=== PATIENT | female | born 1940 | race Caucasian/White ===

== ENCOUNTER 2017-10-23 13:14 | Emergency (ER) | payer MEDICARE, BC ==
[2017-10-23 13:29] VITALS: RESP 18; TEMP 97.5
--- NOTE | 2017-10-23 14:08 | ED ---
General Adult HPI - General Chief complaint: Extremity Problem,Nontraumatic Stated complaint: R Leg Pain Time Seen by Provider: 10/23/17 14:07 Source: patient Mode of arrival: wheelchair Limitations: no limitations - History of Present Illness Initial comments: Presents with right lower pain just proximal to her medial malleolus, states area feels hot, mild aching pain, since she woke up this morning. Patient denies any trauma or strenuous activity. Denies any increased walking or other abnormal activities. Patient states she was recently treated for a skin rash on that leg, which has since resolved. Patient states she's had surgery on her knee, and then a surgery to remove all the nerve sensation to her lower leg after she was having chronic pain. Patient denies history of blood clots. Denies numbness, weakness in the leg. Patient states the leg feels "hard" to her. - Related Data Home Medications Medication Instructions Recorded Confirmed Albuterol Sulfate [Proventil Hfa] 2 puff INHALATION Q6HR PRN 04/17/16 10/23/17 Ascorbic Acid [Vitamin C] 1,000 mg PO DAILY 04/17/16 10/23/17 Cholecalciferol [Vitamin D3] 2,000 unit PO DAILY 04/17/16 10/23/17 Garlic 1 tab PO DAILY 04/17/16 10/23/17 Lysine 1,000 mg PO DAILY 04/17/16 10/23/17 Ubidecarenone [Co Q-10] 200 mg PO DAILY 04/17/16 10/23/17 Boswellia 1 tab PO DAILY 10/23/17 10/23/17 Clopidogrel Bisulfate [Plavix] 75 mg PO DAILY 10/23/17 10/23/17 Ginkgo Biloba 500 mg PO DAILY 10/23/17 10/23/17 Hyaluronic Acid 1 tab PO DAILY 10/23/17 10/23/17 Polycernol 1 tab PO DAILY 10/23/17 10/23/17 Thyroid Support 1 tab PO DAILY 10/23/17 10/23/17 acetaZOLAMIDE [Diamox] 250 mg PO BID 10/23/17 10/23/17 Previous Rx's Medication Instructions Recorded Nitroglycerin Sl Tabs [Nitrostat] 0.4 mg SUBLINGUAL Q5M PRN #25 tab 04/22/16 Allergies Allergy/AdvReac Type Severity Reaction Status Date / Time acetaminophen [From Lortab] Allergy Unknown Verified 10/23/17 14:34 atorvastatin [From Lipitor] Allergy Unknown Verified 10/23/17 14:34 bee venom protein (honey bee) Allergy Anaphylaxis Verified 10/23/17 14:34 budesonide [From Symbicort] Allergy Unknown Verified 10/23/17 14:34 cefadroxil [From Duricef] Allergy Unknown Verified 10/23/17 14:34 codeine Allergy Unknown Verified 10/23/17 14:34 cortisone Allergy Unknown Verified 10/23/17 14:34 diphenhydramine Allergy Unknown Verified 10/23/17 14:34 [From Benadryl] erythromycin base Allergy Unknown Verified 10/23/17 14:34 formoterol [From Symbicort] Allergy Unknown Verified 10/23/17 14:34 hydrocodone [From Lortab] Allergy Unknown Verified 10/23/17 14:34 meperidine [From Demerol] Allergy Unknown Verified 10/23/17 14:34 nalbuphine [From Nubain] Allergy Unknown Verified 10/23/17 14:34 naproxen [From Naprosyn] Allergy Unknown Verified 10/23/17 14:34 Penicillins Allergy Unknown Verified 10/23/17 14:34 prednisone Allergy Unknown Verified 10/23/17 14:34 Sulfa (Sulfonamide Allergy Unknown Verified 10/23/17 14:34 Antibiotics) sulfamethoxazole Allergy Unknown Verified 10/23/17 14:34 [From Bactrim] Tetracyclines Allergy Unknown Verified 10/23/17 14:34 tiotropium Allergy Unknown Verified 10/23/17 14:34 [From Spiriva with HandiHaler] trimethoprim [From Bactrim] Allergy Unknown Verified 10/23/17 14:34 MUSCLE RELAXERS Allergy Unknown Uncoded 10/23/17 14:34 prolensa eye drop Allergy Unknown Uncoded 10/23/17 13:29 steroids Allergy Unknown Uncoded 10/23/17 13:29 Review of Systems ROS Statement: Those systems with pertinent positive or pertinent negative responses have been documented in the HPI. ROS Other: All systems not noted in ROS Statement are negative. Constitutional: Denies: fever, chills, weakness Eyes: Denies: vision change ENT: Denies: congestion Respiratory: Denies: dyspnea, hemoptysis Cardiovascular: Denies: chest pain, palpitations, dyspnea on exertion, orthopnea , edema, syncope Endocrine: Denies: fatigue Gastrointestinal: Denies: abdominal pain Musculoskeletal: Reports: myalgia (Right lower leg). Denies: back pain, joint swelling, arthralgia Skin: Denies: rash Neurological: Denies: headache, weakness, numbness, paresthesias, confusion, abnormal gait Past Medical History Past Medical History: Asthma, Cancer, Chest Pain / Angina, COPD, Pneumonia, Thyroid Disorder Additional Past Medical History / Comment(s): uterine cancer 1974, rt eye glaucoma, poor circulation,uti, arthritis-herniated discs, 04-17-16- nstemi. History of Any Multi-Drug Resistant Organisms: None Reported Past Surgical History: Heart Catheterization, Joint Replacement, Tonsillectomy Additional Past Surgical History / Comment(s): 04-17-16 heart cath with stent to lad,rt knee replacement, alexys cataracts,sking tags removed, colonoscopy/egd, partial hysterectomy, rt foot sx, lt knee arthroscopy. Additional Past Anesthesia/Blood Transfusion Reaction / Comment(s): multiple med allergies-see list Past Psychological History: No Psychological Hx Reported Smoking Status: Never smoker Past Alcohol Use History: None Reported Past Drug Use History: None Reported - Past Family History Father Family Medical History: Congestive Heart Failure (CHF) Mother Family Medical History: Myocardial Infarction ([place]) Additional Family Medical History / Comment(s): cabg General Exam - General Exam Comments Initial Comments: Sitting up in wheelchair. No acute distress. Conversing normally. Calm, pleasant. Well appearing. Limitations: no limitations General appearance: alert, in no apparent distress Head exam: Present: atraumatic, normocephalic Eye exam: Present: normal appearance ENT exam: Present: normal external ear exam Neck exam: Present: normal inspection Respiratory exam: Present: normal lung sounds bilaterally. Absent: respiratory distress, wheezes, rales Cardiovascular Exam: Present: regular rate, normal rhythm GI/Abdominal exam: Present: soft. Absent: distended, tenderness Extremities exam: Present: full ROM, tenderness, normal capillary refill, calf tenderness, other (Mild right calf tenderness. No edema appreciated. No overlying skin changes appreciated. Dopplerable biphasic strong DP pulses in R leg. Equal leg temperatures bilaterally, no cyanosis, legs feel warm but not hot. Sensation & muscle strength intact in right lower extremity.). Absent: pedal edema, joint swelling Neurological exam: Present: alert, oriented X3, normal gait. Absent: motor sensory deficit Psychiatric exam: Present: normal affect, normal mood Skin exam: Present: warm, dry, intact, normal color. Absent: rash, cyanosis, erythema, vesicles, petechiae, pallor Course Vital Signs 10/23/17 13:26 Temperature 97.5 F L Pulse Rate 70 Respiratory 18 Rate Blood Pressure 199/91 O2 Sat by Pulse 99 Oximetry Medical Decision Making - Medical Decision Making Patient with dopplerable pulses. Do not feel patient has arterial occlusion. Patient denies any trauma, however she states that she feels like her trimble bone is hurting her, patient agrees to x-ray of tib-fib. We will obtain Doppler ultrasound to rule out DVT of right lower leg. X-ray of the leg shows no acute fracture or other abnormalities. Doppler negative for DVT of the leg. Patient reevaluated, updated with all results. Patient states she feels that the burning and what she thought was redness has resolved spontaneously. At this time patient does not have signs of compartment syndrome, infection, bony abnormalities, blood clots. Patient agrees to follow up with her primary care physician. Return to ER for new or worsening symptoms. Patient informed that no specific diagnosis no at this time, could be peripheral nerve pain, however patient is to monitor for symptoms closely, could be early in a progressive disease process that may worsen and require further treatment in the future. She agrees to follow-up with her primary care physician or emergency room if such new symptoms occur. Disposition Clinical Impression: Right leg pain Disposition: HOME SELF-CARE Condition: Good Instructions: Leg Pain (ED) Additional Instructions: Follow-up with your primary care physician in one to 2 days. Is patient prescribed a controlled substance at d/c from ED?: No Referrals: Julien Redmond MD [Primary Care Provider] - 1-2 days
--- NOTE | 2017-10-23 15:01 | XR ---
EXAMINATION TYPE: XR tibia fibula RT DATE OF EXAM: 10/23/2017 CLINICAL HISTORY: Stabbing pain in the right leg today. TECHNIQUE: Two views of the right leg are obtained. COMPARISON: Right knee x-ray September 20, 2012.. FINDINGS: [place] osseous structures are demineralized. There is no acute fracture or dislocation see n in the right tibia or fibula. Metallic hardware from interval right knee arthroplasty is present. R ight ankle joint appears within normal limits. The overlying soft tissue appears unremarkable . IMPRESSION: There is no acute fracture or dislocation seen in the right tibia or fibula.
--- NOTE | 2017-10-23 15:40 | US ---
EXAMINATION TYPE: US venous doppler duplex LE RT DATE OF EXAM: 10/23/2017 3:28 PM COMPARISON: NONE CLINICAL HISTORY: Pain. Rt lower leg pain with skin redness and heat x 1 day SIDE PERFORMED: Right TECHNIQUE: The lower extremity deep venous system is examined utilizing real time linear array sonog [place] with graded compression, doppler sonography and color-flow sonography. VESSELS IMAGED: Common Femoral Vein Deep Femoral Vein Greater Saphenous Vein * Femoral Vein Popliteal Vein Small Saphenous Vein * Proximal Calf Veins (* superficial vessels) Right Leg: Negative for DVT IMPRESSION: 1. No diagnostic evidence of DVT as visualized.
[2017-10-23 16:15] VITALS: BP 175/87; PULSE 90
== END 2017-10-23 16:15 | disposition home or self-care (01) ==
LOC: EC 13:14
DX: M79.604 Pain in right leg (principal); M79.661 Pain in right lower leg; J44.9 Chronic obstructive pulmonary disease, unspecified; H40.9 Unspecified glaucoma; E07.9 Disorder of thyroid, unspecified; I25.2 Old myocardial infarction; Z79.02 Long term (current) use of antithrombotics/antiplatelets; Z79.899 Other long term (current) drug therapy; Z88.0 Allergy status to penicillin; Z88.1 Allergy status to other antibiotic agents; Z88.2 Allergy status to sulfonamides; Z88.6 Allergy status to analgesic agent; Z88.5 Allergy status to narcotic agent; Z88.8 Allergy status to other drugs, medicaments and biological substances; Z91.030 Bee allergy status; Z85.42 Personal history of malignant neoplasm of other parts of uterus; Z96.651 Presence of right artificial knee joint; Z90.710 Acquired absence of both cervix and uterus
CPT/HCPCS: 99284

== ENCOUNTER 2017-11-25 03:16 | Emergency (ER) | payer MEDICARE, BC ==
[2017-11-25 03:23] VITALS: RESP 18
[2017-11-25] MEDS ORDERED: CLINDAMYCIN 150 MG CAP PO STA (04:22)
--- NOTE | 2017-11-25 04:23 | ED ---
ENT HPI - General Chief complaint: Allergic Reaction Stated complaint: allergic rxn Time Seen by Provider: 11/25/17 03:56 Source: patient Mode of arrival: ambulatory Limitations: no limitations - History of Present Illness MD complaint: tooth pain Onset/Timin -: days(s) Location: tooth # (7) Severity: moderate Quality: aching Consistency: constant Improves with: none Worsens with: none Context- Dental: history of dental caries Associated Symptoms: gum swelling, toothache - Related Data Home Medications Medication Instructions Recorded Confirmed Albuterol Sulfate [Proventil Hfa] 2 puff INHALATION Q6HR PRN 04/17/16 11/25/17 Ascorbic Acid [Vitamin C] 1,000 mg PO DAILY 04/17/16 11/25/17 Cholecalciferol [Vitamin D3] 2,000 unit PO DAILY 04/17/16 11/25/17 Garlic 1 tab PO DAILY 04/17/16 11/25/17 Lysine 1,000 mg PO DAILY 04/17/16 11/25/17 Ubidecarenone [Co Q-10] 200 mg PO DAILY 04/17/16 11/25/17 Boswellia 1 tab PO DAILY 10/23/17 11/25/17 Clopidogrel Bisulfate [Plavix] 75 mg PO DAILY 10/23/17 11/25/17 Ginkgo Biloba 500 mg PO DAILY 10/23/17 11/25/17 Hyaluronic Acid 1 tab PO DAILY 10/23/17 11/25/17 Polycernol 1 tab PO DAILY 10/23/17 11/25/17 Thyroid Support 1 tab PO DAILY 10/23/17 11/25/17 acetaZOLAMIDE [Diamox] 250 mg PO BID 10/23/17 11/25/17 Previous Rx's Medication Instructions Recorded Nitroglycerin Sl Tabs [Nitrostat] 0.4 mg SUBLINGUAL Q5M PRN #25 tab 04/22/16 Clindamycin [Cleocin] 150 mg PO Q6H #28 capsule 11/25/17 Allergies Allergy/AdvReac Type Severity Reaction Status Date / Time acetaminophen [From Lortab] Allergy Unknown Verified 11/25/17 03:23 atorvastatin [From Lipitor] Allergy Unknown Verified 11/25/17 03:23 bee venom protein (honey bee) Allergy Anaphylaxis Verified 11/25/17 03:23 budesonide [From Symbicort] Allergy Unknown Verified 11/25/17 03:23 cefadroxil [From Duricef] Allergy Unknown Verified 11/25/17 03:23 codeine Allergy Unknown Verified 11/25/17 03:23 cortisone Allergy Unknown Verified 11/25/17 03:23 diphenhydramine Allergy Unknown Verified 11/25/17 03:23 [From Benadryl] erythromycin base Allergy Unknown Verified 11/25/17 03:23 formoterol [From Symbicort] Allergy Unknown Verified 11/25/17 03:23 hydrocodone [From Lortab] Allergy Unknown Verified 11/25/17 03:23 meperidine [From Demerol] Allergy Unknown Verified 11/25/17 03:23 nalbuphine [From Nubain] Allergy Unknown Verified 11/25/17 03:23 naproxen [From Naprosyn] Allergy Unknown Verified 11/25/17 03:23 Penicillins Allergy Unknown Verified 11/25/17 03:23 prednisone Allergy Unknown Verified 11/25/17 03:23 Sulfa (Sulfonamide Allergy Unknown Verified 11/25/17 03:23 Antibiotics) sulfamethoxazole Allergy Unknown Verified 11/25/17 03:23 [From Bactrim] Tetracyclines Allergy Unknown Verified 11/25/17 03:23 tiotropium Allergy Unknown Verified 11/25/17 03:23 [From Spiriva with HandiHaler] trimethoprim [From Bactrim] Allergy Unknown Verified 11/25/17 03:23 MUSCLE RELAXERS Allergy Unknown Uncoded 11/25/17 03:23 prolensa eye drop Allergy Unknown Uncoded 11/25/17 03:23 steroids Allergy Unknown Uncoded 11/25/17 03:23 Review of Systems ROS Statement: Those systems with pertinent positive or pertinent negative responses have been documented in the HPI. ROS Other: All systems not noted in ROS Statement are negative. Constitutional: Denies: fever, chills, weakness ENT: Reports: dental pain. Denies: ear pain, throat pain Respiratory: Denies: cough, dyspnea Cardiovascular: Denies: chest pain Gastrointestinal: Denies: abdominal pain Musculoskeletal: Denies: back pain Neurological: Denies: headache, weakness, numbness Past Medical History Past Medical History: Asthma, Cancer, Chest Pain / Angina, COPD, Pneumonia, Thyroid Disorder Additional Past Medical History / Comment(s): uterine cancer 1973, rt eye glaucoma, poor circulation,uti, arthritis-herniated discs, 04-17-16- nstemi. History of Any Multi-Drug Resistant Organisms: None Reported Past Surgical History: Heart Catheterization, Joint Replacement, Tonsillectomy Additional Past Surgical History / Comment(s): 04-17-16 heart cath with stent to lad,rt knee replacement, alexys cataracts,sking tags removed, colonoscopy/egd, partial hysterectomy, rt foot sx, lt knee arthroscopy. Additional Past Anesthesia/Blood Transfusion Reaction / Comment(s): multiple med allergies-see list Past Psychological History: No Psychological Hx Reported Smoking Status: Never smoker Past Alcohol Use History: None Reported Past Drug Use History: None Reported - Past Family History Father Family Medical History: Congestive Heart Failure (CHF) Mother Family Medical History: Myocardial Infarction ([place]) Additional Family Medical History / Comment(s): cabg General Exam Limitations: no limitations General appearance: alert, in no apparent distress Head exam: Present: atraumatic, normocephalic Eye exam: Present: normal appearance. Absent: scleral icterus, conjunctival injection ENT exam: Present: other (There does appear to be some mild erythema and swelling of the gingiva. No palpable abscess or ulceration.) Neck exam: Present: normal inspection, full ROM, other (No sublingual or neck fullness or tenderness). Absent: tenderness, meningismus, lymphadenopathy Respiratory exam: Present: normal lung sounds bilaterally. Absent: respiratory distress, wheezes, rales, rhonchi, stridor Cardiovascular Exam: Present: regular rate, normal rhythm, normal heart sounds. Absent: systolic murmur, diastolic murmur, rubs, gallop Neurological exam: Present: alert Skin exam: Present: warm, dry, intact, normal color. Absent: rash Course Vital Signs 11/25/17 11/25/17 03:19 04:44 Temperature 98.5 F 98 F Pulse Rate 75 78 Respiratory 18 18 Rate Blood Pressure 182/110 174/90 O2 Sat by Pulse 99 99 Oximetry Disposition Clinical Impression: Dental infection Disposition: HOME SELF-CARE Condition: Fair Instructions: Toothache (ED) Prescriptions: Clindamycin [Cleocin] 150 mg PO Q6H #28 capsule Is patient prescribed a controlled substance at d/c from ED?: No Referrals: Julien Redmond MD [Primary Care Provider] - 1-2 days
[2017-11-25 04:46] VITALS: BP 174/90; PULSE 78; TEMP 98
== END 2017-11-25 04:45 | disposition home or self-care (01) ==
LOC: EC 03:16
DX: K04.7 Periapical abscess without sinus (principal); J44.9 Chronic obstructive pulmonary disease, unspecified; E07.9 Disorder of thyroid, unspecified; Z85.42 Personal history of malignant neoplasm of other parts of uterus; Z79.01 Long term (current) use of anticoagulants; Z79.899 Other long term (current) drug therapy; Z91.030 Bee allergy status; Z88.0 Allergy status to penicillin; Z88.2 Allergy status to sulfonamides; Z88.8 Allergy status to other drugs, medicaments and biological substances; Z88.5 Allergy status to narcotic agent; Z88.1 Allergy status to other antibiotic agents; Z88.6 Allergy status to analgesic agent; Z96.651 Presence of right artificial knee joint; Z95.818 Presence of other cardiac implants and grafts
CPT/HCPCS: 99283

== ENCOUNTER → 2017-12-18 | Outpatient (CLI) | payer MEDICARE, BC ==
[2017-12-18 14:26] VITALS: BMI 32.4
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
== END ==
LOC: WWCWWP 14:11
PROVIDERS: ATTEND Surgery
DX: N60.19 Diffuse cystic mastopathy of unspecified breast (principal); J44.9 Chronic obstructive pulmonary disease, unspecified; Z53.9 Procedure and treatment not carried out, unspecified reason; I25.2 Old myocardial infarction; Z88.0 Allergy status to penicillin; Z85.42 Personal history of malignant neoplasm of other parts of uterus; Z88.1 Allergy status to other antibiotic agents

== ENCOUNTER → 2018-01-27 | Outpatient (CLI) | payer MEDICARE, BC ==
--- NOTE | 2018-01-27 12:46 | XR ---
EXAMINATION TYPE: XR chest 2V DATE OF EXAM: 01/27/2018 COMPARISON: 04/17/2016 TECHNIQUE: PA and lateral views submitted. HISTORY: Cough FINDINGS: The lungs are clear and there is no pneumothorax, pleural effusion, or focal pneumonia. Hypertrophi c and degenerative change of the spine. Curvature of the spine. Atherosclerotic change aorta. Biapica l pleural thickening. Arthropathy of the shoulders. No overt failure. IMPRESSION: 1. No acute process.
== END | disposition home or self-care (01) ==
LOC: RADXRMAIN 12:02
PROVIDERS: ATTEND Nurse Practitioner Adult Health
DX: R09.89 Other specified symptoms and signs involving the circulatory and respiratory systems (principal)
CPT/HCPCS: 71046

== ENCOUNTER → 2018-11-26 | Outpatient (CLI) | payer MEDICARE, BC ==
--- NOTE | 2018-11-30 09:27 | MM ---
Reason for exam: screening (asymptomatic). Last mammogram was performed 1 year and 6 months ago. History: Patient is postmenopausal and has history of other cancer at age 33. Physical Findings: A clinical breast exam by your physician is recommended on an annual basis and results should be correlated with mammographic findings. MG 3D Screening Mammo W/Cad Bilateral CC and MLO view(s) were taken. Prior study comparison: June 06, 2017, bilateral MG 3d screening mammo w/cad. November 09, 2015, bilateral MG 3d screening mammo w/cad. There are scattered fibroglandular densities. No significant changes when compared with prior studies. ASSESSMENT: Negative, BI-RAD 1 RECOMMENDATION: Routine screening mammogram of both breasts in 1 year.
== END | disposition home or self-care (01) ==
LOC: RADMAMWWP 12:21
PROVIDERS: ATTEND Family Medicine
DX: Z12.31 Encounter for screening mammogram for malignant neoplasm of breast (principal)
CPT/HCPCS: 77063; 77067

== ENCOUNTER 2019-11-09 15:09 | Inpatient (IN) | payer MEDICARE, BC ==
[2019-11-09] MEDS ORDERED: SODIUM CHLORIDE 0.9% 500 ML 500 ML IV STA (16:11)
--- NOTE | 2019-11-09 16:22 | ED ---
General Adult HPI - General Chief complaint: Urogenital Stated complaint: uti/sent pcp Time Seen by Provider: 11/09/19 15:45 Source: patient, RN notes reviewed, old records reviewed Mode of arrival: ambulatory Limitations: no limitations - History of Present Illness Initial comments: 78-year-old female patient presents to ED for chief complaint of 2 days of dysuria, burning with urination. Patient reports that she went to her primary care provider's office and give a urine sample and she stated that she had a urinary tract infection. Patient reports that she has an extensive list of ALLERGIES and she was told by her physician Dr. Redmond that because of that she needed to be admitted for IV antibiotics. Denies any abdominal pain. Denies any other complaints at this time. Systemic: Pt denies fatigue, fever/chills, rash. Pt denies weakness, night sweats, weight loss. Neuro: Pt denies headache, visual disturbances, syncope or pre-syncope. HEENT: Pt denies ocular discharge or irritation, otalgia, rhinorrhea, pharyngitis or notable lymphadenopathy. Cardiopulmonary: Pt denies chest pain, SOB, heart palpitations, dyspnea on exertion. Abdominal/GI: Pt denies abdominal pain, n/v/d. : Denies new onset urinary or bowel incontinence. MSK: Pt denies myalgia, loss of strength or function in extremities. Neuro: Pt denies new onset weakness, paresthesias. - Related Data Home Medications Medication Instructions Recorded Confirmed Albuterol Sulfate [Proventil Hfa] 2 puff INHALATION Q6HR PRN 04/17/16 11/25/17 Ascorbic Acid [Vitamin C] 1,000 mg PO DAILY 04/17/16 11/25/17 Cholecalciferol [Vitamin D3] 2,000 unit PO DAILY 04/17/16 11/25/17 Garlic 1 tab PO DAILY 04/17/16 11/25/17 Lysine 1,000 mg PO DAILY 04/17/16 11/25/17 Ubidecarenone [Co Q-10] 200 mg PO DAILY 04/17/16 11/25/17 Boswellia 1 tab PO DAILY 10/23/17 11/25/17 Clopidogrel Bisulfate [Plavix] 75 mg PO DAILY 10/23/17 11/25/17 Ginkgo Biloba 500 mg PO DAILY 10/23/17 11/25/17 Hyaluronic Acid 1 tab PO DAILY 10/23/17 11/25/17 Polycernol 1 tab PO DAILY 10/23/17 11/25/17 Thyroid Support 1 tab PO DAILY 10/23/17 11/25/17 acetaZOLAMIDE [Diamox] 250 mg PO BID 10/23/17 11/25/17 Previous Rx's Medication Instructions Recorded Nitroglycerin Sl Tabs [Nitrostat] 0.4 mg SUBLINGUAL Q5M PRN #25 tab 04/22/16 Clindamycin [Cleocin] 150 mg PO Q6H #28 capsule 11/25/17 Allergies Allergy/AdvReac Type Severity Reaction Status Date / Time acetaminophen [From Lortab] Allergy Unknown Verified 11/09/19 15:44 atorvastatin [From Lipitor] Allergy Unknown Verified 11/09/19 15:44 bee venom protein (honey bee) Allergy Anaphylaxis Verified 11/09/19 15:44 budesonide [From Symbicort] Allergy Unknown Verified 11/09/19 15:44 cefadroxil [From Duricef] Allergy Unknown Verified 11/09/19 15:44 codeine Allergy Unknown Verified 11/09/19 15:44 cortisone Allergy Unknown Verified 11/09/19 15:44 diphenhydramine Allergy Unknown Verified 11/09/19 15:44 [From Benadryl] erythromycin base Allergy Unknown Verified 11/09/19 15:44 formoterol [From Symbicort] Allergy Unknown Verified 11/09/19 15:44 hydrocodone [From Lortab] Allergy Unknown Verified 11/09/19 15:44 meperidine [From Demerol] Allergy Unknown Verified 11/09/19 15:44 nalbuphine [From Nubain] Allergy Unknown Verified 11/09/19 15:44 naproxen [From Naprosyn] Allergy Unknown Verified 11/09/19 15:44 Penicillins Allergy Unknown Verified 11/09/19 15:44 prednisone Allergy Unknown Verified 11/09/19 15:44 Sulfa (Sulfonamide Allergy Unknown Verified 11/09/19 15:44 Antibiotics) sulfamethoxazole Allergy Unknown Verified 11/09/19 15:44 [From Bactrim] Tetracyclines Allergy Unknown Verified 11/09/19 15:44 tiotropium Allergy Unknown Verified 11/09/19 15:44 [From Spiriva with HandiHaler] trimethoprim [From Bactrim] Allergy Unknown Verified 11/09/19 15:44 MUSCLE RELAXERS Allergy Unknown Uncoded 11/09/19 15:44 prolensa eye drop Allergy Unknown Uncoded 11/09/19 15:44 steroids Allergy Unknown Uncoded 11/09/19 15:44 Review of Systems ROS Statement: Those systems with pertinent positive or pertinent negative responses have been documented in the HPI. ROS Other: All systems not noted in ROS Statement are negative. Past Medical History Past Medical History: Asthma, Cancer, Chest Pain / Angina, COPD, Pneumonia, Thyroid Disorder Additional Past Medical History / Comment(s): uterine cancer 1973, rt eye glaucoma, poor circulation,uti, arthritis-herniated discs, 04-17-16- nstemi. History of Any Multi-Drug Resistant Organisms: None Reported Past Surgical History: Heart Catheterization, Joint Replacement, Orthopedic Surgery, Tonsillectomy Additional Past Surgical History / Comment(s): 04-17-16 heart cath with stent to lad,rt knee replacement, alexys cataracts,sking tags removed, colonoscopy/egd, partial hysterectomy, rt foot sx, lt knee arthroscopy. Additional Past Anesthesia/Blood Transfusion Reaction / Comment(s): multiple med allergies-see list Past Psychological History: No Psychological Hx Reported Smoking Status: Never smoker Past Alcohol Use History: None Reported Past Drug Use History: None Reported - Past Family History Father Family Medical History: Congestive Heart Failure (CHF) Mother Family Medical History: Myocardial Infarction ([place]) Additional Family Medical History / Comment(s): cabg General Exam - General Exam Comments Initial Comments: Constitutional: NAD, AOX3, Pt has pleasant affect. HEENT: NC/AT, trachea midline, neck supple, no lymphadenopathy. Posterior pharynx non erythematous, without exudates. External ears appear normal, without discharge. Mucous membranes moist. Eyes PERRLA, EOM intact. There is no scleral icterus. No pallor noted. Cardiopulmonary: RRR, no murmurs, rubs or gallops, no JVD noted. Lungs CTAB in anterior and posterior leung. No peripheral edema. Abdominal exam: Abdomen soft and non-distended. Abdomen non-tender to palpation in all 4 quadrants. Bowel sounds active in LLQ. No hepatosplenomegaly. No ecchymosis Neuro: CN II-XII grossly intact. No nuchal rigidity. No raccon eyes, no andujar sign, no hemotympanum. No cervical spinal tenderness. MSK: No posterior calf tenderness bilaterally, homans sign negative bilaterally. Posterior tibialis and radial pulse +2 bilaterally. Sensation intact in upper and lower extremities. Full active ROM in upper and lower extremities, 5/5 stregnth. Limitations: no limitations Course Vital Signs 11/09/19 15:41 Temperature 97.8 F Pulse Rate 117 H Respiratory 20 Rate Blood Pressure 164/76 O2 Sat by Pulse 97 Oximetry Medical Decision Making - Medical Decision Making 78-year-old female patient proceeded to ED for urinary tract infection. Patient had a urine sample from her primary care provider which was positive for UTI today. Patient extensive medical history patient probably Around wanted patient merited for urinary tract infection. Patient admitted to hospital started on Invanz. PCP Dr. Redmond. Patient admitted to Dr. Larson with infectious disease consult. Dr. Larson accepts patient. Case discussed with Dr. Lamb. - Lab Data Result diagrams: 11/09/19 16:34 11/09/19 16:34 Lab Results 11/09/19 11/09/19 11/09/19 Range/Units 16:34 16:34 16:34 WBC 8.1 (3.8-10.6) k/uL RBC 4.75 (3.80-5.40) m/uL Hgb 14.0 (11.4-16.0) gm/dL Hct 44.8 (34.0-46.0) % MCV 94.3 (80.0-100.0) fL MCH 29.4 (25.0-35.0) pg MCHC 31.2 (31.0-37.0) g/dL RDW 13.4 (11.5-15.5) % Plt Count 172 (150-450) k/uL Neutrophils % 59 % Lymphocytes % 32 % Monocytes % 7 % Eosinophils % 1 % Basophils % 0 % Neutrophils # 4.8 (1.3-7.7) k/uL Lymphocytes # 2.6 (1.0-4.8) k/uL Monocytes # 0.5 (0-1.0) k/uL Eosinophils # 0.1 (0-0.7) k/uL Basophils # 0.0 (0-0.2) k/uL Hypochromasia Moderate Sodium 137 (137-145) mmol/L Potassium 3.8 (3.5-5.1) mmol/L Chloride 112 H (98-107) mmol/L Carbon Dioxide 16 L (22-30) mmol/L Anion Gap 9 mmol/L BUN 11 (7-17) mg/dL Creatinine 0.77 (0.52-1.04) mg/dL Est GFR (CKD-EPI)AfAm 85 (>60 ml/min/1.73 sqM) Est GFR (CKD-EPI)NonAf 74 (>60 ml/min/1.73 sqM) Glucose 112 H (74-99) mg/dL Plasma Lactic Acid Felipe 1.0 (0.7-2.0) mmol/L Calcium 8.7 (8.4-10.2) mg/dL Total Bilirubin 0.6 (0.2-1.3) mg/dL AST 35 (14-36) U/L ALT 11 (4-34) U/L Alkaline Phosphatase 62 (38-126) U/L Total Protein 7.1 (6.3-8.2) g/dL Albumin 3.6 (3.5-5.0) g/dL Lipase 222 (23-300) U/L Disposition Clinical Impression: UTI (urinary tract infection) Disposition: ADMITTED IP TO THIS HOSP Condition: Fair Is patient prescribed a controlled substance at d/c from ED?: No Referrals: Julien Redmond MD [Primary Care Provider] - 1-2 days
[2019-11-09 16:54] LABS: Basophils % (A) 0 %; Eosinophils # (A) 0.1 k/uL (0-0.7); Eosinophils % (A) 1 %; HCT 44.8 % (34.0-46.0); Hypochromasia Moderate; Lymphocytes # (A) 2.6 k/uL (1.0-4.8); Lymphocytes % (A) 32 %; MCH 29.4 pg (25.0-35.0); MCHC 31.2 g/dL (31.0-37.0); MCV 94.3 fL (80.0-100.0); Mean Platelet Volume 9.4; Monocytes # (A) 0.5 k/uL (0-1.0); Monocytes % (A) 7 %; Neutrophils # (A) 4.8 k/uL (1.3-7.7); Neutrophils % (A) 59 %; Platelet Count 172 k/uL (150-450); RBC 4.75 m/uL (3.80-5.40); RDW 13.4 % (11.5-15.5); WBC 8.1 k/uL (3.8-10.6)
[2019-11-09 17:02] LABS: Albumin 3.6 g/dL (3.5-5.0); Calcium 8.7 mg/dL (8.4-10.2); Potassium 3.8 mmol/L (3.5-5.1); Total Bilirubin 0.6 mg/dL (0.2-1.3); Total Protein 7.1 g/dL (6.3-8.2)
[2019-11-09] MEDS ORDERED: ERTAPENEM 1 GM in SODIUM CHLORIDE 0.9% 50 ML IVPB STA (17:49)
[2019-11-09 18:12] LABS: Appearance,Urine Cloudy (Clear); Bacteria,Urine Occasional /hpf; Bilirubin,Urine Negative (Negative); Blood,Urine Negative (Negative); Budding Yeast,Urine Few /hpf; Color,Urine Light Yellow; Glucose,Urine (UA) Negative (Negative); Hyaline Casts,Urine 1 /lpf (0-2); Ketones,Urine Negative (Negative); Leukocyte Esterase,Urine Large (Negative); Mucus,Urine Rare /hpf; Nitrite,Urine Negative (Negative); Protein,Urine Negative (Negative); RBC,Urine 7 /hpf (0-5); Specific Gravity,Urine 1.004 (1.001-1.035); Squamous Epithelial Cell,Urine 1 /hpf (0-4); Urobilinogen,Urine <2.0 mg/dL (<2.0); WBC,Urine 95 /hpf (0-5)
[2019-11-09] MEDS ORDERED: NALOXONE 0.4 MG/ML 1 ML VIAL IV PRN (18:30)
[2019-11-09] MEDS ORDERED: ALPRAZolam 0.25 MG TAB PO PRN (20:25)
--- NOTE | 2019-11-10 00:34 | HP ---
HISTORY AND PHYSICAL DATE OF SERVICE: 11/09/2019 CHIEF COMPLAINT: Dysuria and UTI. HISTORY OF PRESENT ILLNESS: This 78-year-old woman with a past medical history of multiple medical problems including history of asthma, COPD, history of pneumonia, history of uterine cancer, history of DJD, history of multiple medication allergies, being followed by Dr. Julien Redmond in the outpatient setting complains of dysuria for the last several days. The patient is also complaining of lower abdominal discomfort and the patient went to Dr. Redmond's office and the patient also has some burning sensation even when not passing urine in the urethral area and the patient was taken a urine sample and was noted to have UTI. Patient referred to [facility] for further evaluation and treatment. White count is normal, but CO2 was 16 and UA showed significant abnormalities. The patient admitted for further evaluation and treatment. There is no history of any rigors, but the patient previously had UTI and apparently IV antibiotics given outpatient and seen Dr. Prater also. The patient received Pyridium also previously. PAST MEDICAL HISTORY: History of asthma, history of cancer, COPD, history of pneumonia, history of hypothyroidism, history of uterine cancer. MEDICATIONS: Medications are: 1. Diamox 250 mg p.o. b.i.d. 2. Coenzyme Q10, 100 mg p.o. daily. 3. Thyroid supplements. 5. Nitrostat 0.4 sublingual p.r.n. 6. Lysine 1000 mg p.o. daily. 7. Hyaluronic acid 1 tab p.o. daily. 8. [place] biloba 500 mg p.o. daily. 9. Garlic 1 tablet p.o. daily. 10.Plavix 75 mg p.o. daily. 11.Cleocin 150 mg q.6 p.r.n. 12.Vitamin D3, 2000 daily. 13.Boswellia 1 tablet p.o. daily. 14.Vitamin C 1000 mg p.o. daily. 15.Proventil 2 puffs q.6 p.r.n. ALLERGIES: Multiple allergies including TYLENOL, LIPITOR, HONEY BEE, SYMBICORT, DURICEF, CODEINE, CORTISONE, BENADRYL, SYMBICORT, ERYTHROMYCIN, DEMEROL, NUBAIN, NAPROSYN, PENICILLIN, PREDNISONE, SULFA, TETRACYCLINE, SPIRIVA. PROLENSA EYEDROPS and STEROIDS. FAMILY HISTORY: History of CHF in the family. SOCIAL HISTORY: No history of smoking. No history of alcohol intake. REVIEW OF SYSTEMS: ENT: No diminished hearing or diminished vision. CARDIOVASCULAR SYSTEM: No angina. RESPIRATORY SYSTEM: No cough. GI: As mentioned earlier. : As mentioned earlier. NERVOUS SYSTEM: No numbness or weakness. ALLERGY/IMMUNOLOGY: No history of asthma. MUSCULOSKELETAL: As mentioned earlier. HEMATOLOGY: No history of anemia. ENDOCRINE: No history of diabetes or hypothyroidism. CONSTITUTIONAL: As mentioned earlier. DERMATOLOGY: Negative. RHEUMATOLOGY: Negative. PSYCHIATRY: As mentioned earlier. PHYSICAL EXAMINATION: The patient is alert and oriented x3. Pulse is 117, blood pressure 164/76, respiration 20, temperature 97.8, pulse ox 97% on room air. HEENT: Conjunctivae normal. Oral mucosa moist. NECK: No jugular venous distention or carotid bruit. No lymph node enlargement. CARDIOVASCULAR: S1, S2 muffled. No S3, no S4. RESPIRATORY: Breath sounds diminished at the bases. No rhonchi, no crackles. ABDOMEN: Soft, obese, nontender. No mass palpable. Otherwise mild diffuse tenderness in the lower part of the abdomen present. There is no guarding or rigidity. LEGS: No edema, no swelling. NERVOUS SYSTEM: Higher function as mentioned earlier. Moves all 4 limbs. No focal motor or sensory deficit. LYMPHATICS: No lymphadenopathy of the neck, axillae or groin. SKIN: No ulcer, rash or bleeding. JOINTS: No active deforming arthropathy. LABS: Labs at this time show CBC within normal limits. Sodium 137, potassium 3.8, CO2 16. Glucose is 112. UA noted. ASSESSMENT: 1. Acute urinary tract infection present on admission. 2. History of multiple antibiotic and medication allergies. 3. Decreased CO2. 4. History of asthma and chronic obstructive pulmonary disease. 5. History of chest pain. 6. History of right lung cancer, status post radiation. 7. History of pneumonia. 8. History of hypothyroidism. 9. History of uterine cancer. 10.History of glaucoma. 11.History of cardiac catheterization. 12.History of tonsillectomy. 13.History of LAD stent. 14.FULL CODE. RECOMMENDATIONS AND DISCUSSION: This 78-year-old woman who presented with multiple complex medical issues, we will monitor the patient closely. Continue the current medications, continue symptomatic treatment. I would recommend empiric IV antibiotics and follow the cultures. IV Invanz has been recommended. We will also obtain Dr. Prater consultation and initiate Pyridium. Resume the home medications. DVT prophylaxis. Incentive spirometry and proton pump inhibitors. Overall prognosis guarded because of multiple complex medical issues. Further recommendations to follow. A copy of dictation forwarded to Dr. Julien Redmond who is the primary physician. MMODL / IJN: [id number] / MTDD
[2019-11-10] MEDS: PHENAZOPYRIDINE 200 MG TAB PO SCH ×4 (00:58→21:08)
[2019-11-10] MEDS: HEPARIN SODIUM,PORCINE 5,000 UNIT/ML 1 ML VIAL SQ SCH ×3 (01:03→21:02)
[2019-11-10 08:59] LABS: Basophils % (A) 0 %; Eosinophils # (A) 0.1 k/uL (0-0.7); Eosinophils % (A) 2 %; HCT 41.2 % (34.0-46.0); Hypochromasia Moderate; Lymphocytes # (A) 2.4 k/uL (1.0-4.8); Lymphocytes % (A) 32 %; MCH 29.8 pg (25.0-35.0); MCHC 31.4 g/dL (31.0-37.0); MCV 94.9 fL (80.0-100.0); Mean Platelet Volume 9.2; Monocytes # (A) 0.5 k/uL (0-1.0); Monocytes % (A) 7 %; Neutrophils # (A) 4.3 k/uL (1.3-7.7); Neutrophils % (A) 57 %; Platelet Count 178 k/uL (150-450); RBC 4.34 m/uL (3.80-5.40); RDW 13.2 % (11.5-15.5); WBC 7.5 k/uL (3.8-10.6)
[2019-11-10 09:15] LABS: African American GFR (CKD) >90 (>60 ml/min/1.73 sqM); Anion Gap 9 mmol/L; Blood Urea Nitrogen 11 mg/dL (7-17); Calcium 8.4 mg/dL (8.4-10.2); Carbon Dioxide 18 mmol/L (22-30); Chloride 113 mmol/L (98-107); Glucose 87 mg/dL (74-99); Non-African American GFR(CKD) 84 (>60 ml/min/1.73 sqM); Potassium 3.4 mmol/L (3.5-5.1); Sodium 140 mmol/L (137-145)
[2019-11-10] MEDS: ERTAPENEM 1 GM in SODIUM CHLORIDE 0.9% 50 ML IVPB SCH (09:53)
[2019-11-10] MEDS: PANTOPRAZOLE 40 MG TABLET PO SCH (10:04)
[2019-11-10] MEDS ORDERED: acetaZOLAMIDE 250 MG TAB PO STA (16:09)
[2019-11-10] MEDS ORDERED: POTASSIUM CHLORIDE ER 20 MEQ TAB.ER PO STA (16:57)
[2019-11-10] MEDS: acetaZOLAMIDE 250 MG TAB PO SCH (21:08)
--- NOTE | 2019-11-10 22:19 | PN ---
PROGRESS NOTE DATE OF SERVICE: 11/10/2019 This 78-year-old woman admitted with severe dysuria and UTI is being closely monitored at this time. Cultures are pending at this time. However, the patient was started on Invanz. No chest pain. No palpitations. Infectious disease evaluation by Dr. Prater is being requested. PHYSICAL EXAMINATION: Alert and oriented x3. Pulse 55, blood pressure 142/59, respiration 18, temperature 99 degrees, pulse ox 98% on room air. HEENT: Conjunctivae normal. NECK: No jugular venous distention. CARDIOVASCULAR SYSTEM: S1, S2 muffled. RESPIRATORY SYSTEM: Breath sounds diminished at the bases. No rhonchi. No crackles. ABDOMEN: Soft. Mild diffuse discomfort in the right lower part. Otherwise, no guarding and no rigidity. No mass palpable. LEGS: No edema. No swelling. NERVOUS SYSTEM: No focal deficit. LABS: CBC within normal limits. Potassium 3.4. UA noted. The cultures are pending at this time. ASSESSMENT: 1. Acute urinary tract infection, present on admission. 2. History of multiple antibiotic and medication allergies. 3. Decreased carbon dioxide. 4. History of asthma, chronic obstructive pulmonary disease. 5. History of chest pain. 6. History of right lung cancer, status post radiation. 7. History of pneumonia. 8. History of hypothyroidism. 9. History of uterine cancer. 10.History of glaucoma. 11.History of cardiac catheterization. 12.History of tonsillectomy. 13.History of left anterior descending coronary artery stent. 14.Mild hypokalemia. 15.FULL CODE. RECOMMENDATIONS AND DISCUSSION: In this 78-year-old woman who presented with multiple complex medical issues, we will monitor the patient closely, continue the current medications, continue symptomatic treatment. Continue the Invanz for now. Infectious disease evaluation. The patient is keen on going home. I will supplement some potassium. Continue to monitor. Further recommendations to follow. MMODL / IJN: [id number] /
--- NOTE | 2019-11-11 08:34 | P.CONS ---
History of Present Illness - Reason for Consult Consult date: 11/10/19 UTI Requesting physician: Lyle Larson - Chief Complaint Burning urine x 2 days - History of Present Illness Patient is a 78-year-old female with past medical history significant for recurrent urinary tract infection and multiple antibiotic allergies patient presenting to the ER at [facility] on November 09, 2019 with a 2-day history of dysuria burning with urination some frequency and suprapubic discomfort apparently the patient went to see her primary care physician and the patient did have urine sample she was told she has urine tract infection and because of her multiple antibiotic allergy he has been advised to go to the hospital for antibiotic therapy on presentation to the hospital patient has been afebrile patient did have a normal white count urine was positive with large leukocyte esterase is 94 WBC cultures are currently pending patient has been started on Invanz because of her multiple antibiotic allergies and infectious was consulted for further management of antibiotic therapy. Patient symptoms currently are burning of urine and frequency for 2 days denies having any hematuria mild suprapubic discomfort more with a leaking 2-3 out of 10 and radiation no flank pain some nausea but no vomiting and no diarrhea Review of Systems Positive point has been mentioned in HPI rest of the systems are negative Past Medical History Past Medical History: Asthma, Cancer, Chest Pain / Angina, COPD, Pneumonia, Thyroid Disorder Additional Past Medical History / Comment(s): uterine cancer 1973, rt eye glaucoma, poor circulation,uti, arthritis-herniated discs, 04-17-16- nstemi. History of Any Multi-Drug Resistant Organisms: None Reported Past Surgical History: Heart Catheterization, Joint Replacement, Orthopedic Surgery, Tonsillectomy Additional Past Surgical History / Comment(s): 04-17-16 heart cath with stent to lad,rt knee replacement, alexys cataracts,sking tags removed, colonoscopy/egd, partial hysterectomy, rt foot sx, lt knee arthroscopy. Additional Past Anesthesia/Blood Transfusion Reaction / Comm: multiple med allergies-see list Past Psychological History: No Psychological Hx Reported Smoking Status: Never smoker Past Alcohol Use History: None Reported Past Drug Use History: None Reported - Past Family History Father Family Medical History: Congestive Heart Failure (CHF) Mother Family Medical History: Myocardial Infarction ([place]) Additional Family Medical History / Comment(s): cabg Medications and Allergies Home Medications Medication Instructions Recorded Confirmed Type Albuterol Sulfate [Proventil Hfa] 1 puff INHALATION RT-Q4H PRN 04/17/16 11/10/19 History Ascorbic Acid [Vitamin C] 1,000 mg PO DAILY 04/17/16 11/10/19 History Cholecalciferol [Vitamin D3] 2,000 unit PO DAILY 04/17/16 11/10/19 History Garlic 1 tab PO DAILY 04/17/16 11/10/19 History Lysine 1,000 mg PO DAILY 04/17/16 11/10/19 History Ubidecarenone [Co Q-10] 200 mg PO DAILY 04/17/16 11/10/19 History Nitroglycerin Sl Tabs [Nitrostat] 0.4 mg SUBLINGUAL Q5M PRN #25 tab 04/22/16 11/10/19 Rx Ginkgo Biloba 500 mg PO DAILY 10/23/17 11/10/19 History acetaZOLAMIDE [Diamox] 500 mg PO BID 10/23/17 11/10/19 History Magnesium Oxide [Magox 400] 400 mg PO HS 11/10/19 11/10/19 History [place] 150mcg 150 mcg PO DAILY 11/10/19 11/10/19 History Allergies Allergy/AdvReac Type Severity Reaction Status Date / Time acetaminophen [From Lortab] Allergy Unknown Verified 11/10/19 10:43 atorvastatin [From Lipitor] Allergy Unknown Verified 11/10/19 10:43 bee venom protein (honey bee) Allergy Anaphylaxis Verified 11/10/19 10:43 budesonide [From Symbicort] Allergy Unknown Verified 11/10/19 10:43 cefadroxil [From Duricef] Allergy Unknown Verified 11/10/19 10:43 codeine Allergy Unknown Verified 11/10/19 10:43 cortisone Allergy Unknown Verified 11/10/19 10:43 diphenhydramine Allergy Unknown Verified 11/10/19 10:43 [From Benadryl] erythromycin base Allergy Unknown Verified 11/10/19 10:43 formoterol [From Symbicort] Allergy Unknown Verified 11/10/19 10:43 hydrocodone [From Lortab] Allergy Unknown Verified 11/10/19 10:43 meperidine [From Demerol] Allergy Unknown Verified 11/10/19 10:43 nalbuphine [From Nubain] Allergy Unknown Verified 11/10/19 10:43 naproxen [From Naprosyn] Allergy Unknown Verified 11/10/19 10:43 Penicillins Allergy Unknown Verified 11/10/19 10:43 prednisone Allergy Unknown Verified 11/10/19 10:43 Sulfa (Sulfonamide Allergy Unknown Verified 11/10/19 10:43 Antibiotics) sulfamethoxazole Allergy Unknown Verified 11/10/19 10:43 [From Bactrim] Tetracyclines Allergy Unknown Verified 11/10/19 10:43 tiotropium Allergy Unknown Verified 11/10/19 10:43 [From Spiriva with HandiHaler] trimethoprim [From Bactrim] Allergy Unknown Verified 11/10/19 10:43 MUSCLE RELAXERS AdvReac Unknown Uncoded 11/10/19 10:43 prolensa eye drop AdvReac Unknown Uncoded 11/10/19 10:43 steroids AdvReac Unknown Uncoded 11/10/19 10:43 Physical Exam Vitals: Vital Signs Temp Pulse Pulse Resp BP BP Pulse Ox 11/10/19 14:04 98.0 F 81 19 146/76 93 L 11/10/19 07:00 98.0 F 55 L 18 142/59 98 11/10/19 03:56 98.2 F 58 L 18 126/55 97 11/10/19 00:00 18 11/09/19 23:00 16 11/09/19 20:23 97.8 F 70 16 169/84 99 11/09/19 15:41 97.8 F 117 H 20 164/76 97 Intake and Output 11/10/19 11/10/19 11/10/19 06:59 14:59 22:59 Intake Total 2450 Balance 2450 Intake: IV 50 Ertapenem 1 gm In Sodium 50 Chloride 0.9% 50 ml @ 100 mls/hr IVPB DAILY [facility] Rx #:[id number] Oral 2400 Other: Voiding Method Toilet Toilet # Voids 2 GENERAL DESCRIPTION: Elderly female lying in bed, no distress. No tachypnea or accessory muscle of respiration use. HEENT: Shows Pallor , no scleral icterus. Oral mucous membrane is dry. NECK: Trachea central, no thyromegaly. LUNGS: Unlabored breathing. Clear to auscultation anteriorly. No wheeze or crackle. HEART: S1, S2, regular rate and rhythm. ABDOMEN: Soft, no tenderness , guarding or rigidity EXTREMITIES: No edema of feet. SKIN: No rash, no masses palpable. NEUROLOGICAL: The patient is awake, alert, oriented x3, mood and affect normal. Results CBC & Chem 7: 11/10/19 07:35 11/10/19 07:35 Labs: Abnormal Lab Results - Last 24 Hours (Table) 11/09/19 11/09/19 11/10/19 Range/Units 16:34 16:54 07:35 Potassium 3.4 L (3.5-5.1) mmol/L Chloride 112 H 113 H (98-107) mmol/L Carbon Dioxide 16 L 18 L (22-30) mmol/L Glucose 112 H (74-99) mg/dL Urine Appearance Cloudy H (Clear) Ur Leukocyte Esterase Large H (Negative) Urine RBC 7 H (0-5) /hpf Urine WBC 95 H (0-5) /hpf Urine WBC Clumps Few H (None) /hpf Urine Bacteria Occasional H (None) /hpf Urine Mucus Rare H (None) /hpf Urine Yeast (Budding) Few H (None) /hpf Microbiology - Last 24 Hours (Table) 11/09/19 16:54 Urine Culture - Preliminary Urine,Voided Assessment and Plan Assessment: patient presented to hospital with frequency burning of urine and suprapubic discomfort likely representing cystitis in this patient who did have history of recurrent UTIs and multiple antibiotic allergies with no oral option available clinical suspicion low for deep infection in this patient with no fever elevated white count (1) Allergy to multiple antibiotics Current Visit: Yes Status: Acute Code(s): Z88.1 - ALLERGY STATUS TO OTHER AN TIBIOTIC AGENTS STATUS SNOMED Code(s): 318258409 (2) UTI (urinary tract infection) Current Visit: Yes Status: Acute Code(s): N39.0 - URINARY TRACT INFECTION, SITE NOT SPECIFIED SNOMED Code(s): 31446200 Plan: 1-Invanz 1 g IV bag daily while waiting for the culture to finalize 2-patient has been educated about her condition and how to prevent recurrent UTIs including personal hygiene and may benefit from intravaginal estrogen as the patient is postmenopausal Contributed to her recurrent UTIs We will follow on clinical condition and cultures to further adjust medication if needed Thank you for this consultation we will follow the patient along with you
[2019-11-11] MEDS: CHOLECALCIFEROL 1,000 UNIT TAB PO SCH (09:28)
[2019-11-11] MEDS: ERTAPENEM 1 GM in SODIUM CHLORIDE 0.9% 50 ML IVPB SCH (09:28)
[2019-11-11] MEDS: PHENAZOPYRIDINE 200 MG TAB PO SCH ×3 (09:29→22:08)
[2019-11-11] MEDS: acetaZOLAMIDE 250 MG TAB PO SCH ×2 (09:30→22:09)
[2019-11-11] MEDS: HEPARIN SODIUM,PORCINE 5,000 UNIT/ML 1 ML VIAL SQ SCH ×2 (09:31→22:09)
[2019-11-11] MEDS: PANTOPRAZOLE 40 MG TABLET PO SCH (09:31)
[2019-11-11] MEDS: ASCORBIC ACID 500 MG TAB PO SCH (09:44)
[2019-11-11 10:19] LABS: Basophils % (A) 0 %; Eosinophils # (A) 0.1 k/uL (0-0.7); Eosinophils % (A) 2 %; HGB 12.5 gm/dL (11.4-16.0); Hypochromasia Slight; Lymphocytes # (A) 2.2 k/uL (1.0-4.8); Lymphocytes % (A) 35 %; MCH 28.6 pg (25.0-35.0); MCHC 30.4 g/dL (31.0-37.0); MCV 94.1 fL (80.0-100.0); Mean Platelet Volume 9.3; Monocytes # (A) 0.4 k/uL (0-1.0); Monocytes % (A) 7 %; Neutrophils # (A) 3.5 k/uL (1.3-7.7); Neutrophils % (A) 55 %; Platelet Count 160 k/uL (150-450); RBC 4.36 m/uL (3.80-5.40); RDW 13.3 % (11.5-15.5); WBC 6.3 k/uL (3.8-10.6)
[2019-11-11 10:41] LABS: Potassium 3.7 mmol/L (3.5-5.1)
[2019-11-11 10:42] LABS: African American GFR (CKD) >90 (>60 ml/min/1.73 sqM); Anion Gap 6 mmol/L; Blood Urea Nitrogen 12 mg/dL (7-17); Calcium 8.7 mg/dL (8.4-10.2); Carbon Dioxide 21 mmol/L (22-30); Chloride 112 mmol/L (98-107); Glucose 89 mg/dL (74-99); Non-African American GFR(CKD) 82 (>60 ml/min/1.73 sqM); Sodium 139 mmol/L (137-145)
--- NOTE | 2019-11-11 13:52 | PN ---
PROGRESS NOTE DATE OF SERVICE: 11/11/2019 REASON FOR FOLLOWUP: Urinary tract infection with a history of recurrent UTI and multiple antibiotic allergies. INTERVAL HISTORY: The patient is currently afebrile. The patient is breathing comfortably. Still has some burning of urine. No chest pain. No cough. No nausea, no vomiting. No abdominal pain, no diarrhea. PHYSICAL EXAMINATION: Blood pressure 154/79 with a pulse of 59, temperature 97.5. She is 98% on room air. General description is an elderly female, lying in bed in no distress. RESPIRATORY SYSTEM: Unlabored breathing, clear to auscultation anteriorly. HEART: S1, S2. Regular rate and rhythm. ABDOMEN: Soft, no tenderness. LABS: Hemoglobin is 10.1, white count of 6.3, BUN of 12, creatinine 0.71. Blood culture negative. Urine is so far negative. DIAGNOSTIC IMPRESSION AND PLAN: Patient with symptomatic urinary tract infection in this patient with multiple antibiotic allergies. Currently on Invanz to continue while waiting for the culture to finalize. Continue supportive care. MMODL / IJN: [id number] /
--- NOTE | 2019-11-11 16:07 | PN ---
PROGRESS NOTE DATE OF SERVICE: 11/11/2019 This 78-year-old woman who was admitted with UTI is being closely monitored. The cultures are showing Gram-negative bacilli; final ID is pending at this time. No chest pain. No palpitations. No fever. Dr. Prater is following the patient closely. Patient is on Invanz, since the patient has MULTIPLE ANTIBIOTIC ALLERGIES. PHYSICAL EXAMINATION: Alert and oriented x3. Pulse 61, blood pressure 150/75, respiration 16, temperature 97.8, pulse ox 98% on room air. HEENT: Conjunctivae normal. NECK: No jugular venous distention. CARDIOVASCULAR SYSTEM: S1, S2 muffled. RESPIRATORY SYSTEM: Breath sounds diminished at the bases. No rhonchi. No crackles. ABDOMEN: Soft, non-tender. LEGS: No edema. No swelling. NERVOUS SYSTEM: No focal deficit. LABS: WBC 6.3, hemoglobin 12.5. Sodium 139, potassium 3.7. ASSESSMENT: 1. Acute urinary tract infection, present on admission. 2. History of MULTIPLE ANTIBIOTIC AND MEDICATION ALLERGIES. 3. Decreased carbon dioxide. 4. History of asthma, chronic obstructive pulmonary disease. 5. History of chest pain. 6. History of right lung cancer, status post radiation. 7. History of pneumonia. 8. History of hypothyroidism. 9. History of uterine cancer. 10.History of glaucoma. 11.History of cardiac catheterization. 12.History of tonsillectomy. 13.History of left left anterior descending coronary artery coronary artery disease, stent. 14.Mild hypokalemia. 15.FULL CODE. RECOMMENDATIONS AND DISCUSSION: I recommend to continue current medications, continue with the monitoring, symptomatic treatment. Otherwise at this time I recommend continuing with the antibiotics, Invanz, and await final ID of the organism. Guarded prognosis. Further recommendations to follow. MMODL / IJN: [id number] /
[2019-11-11] MEDS: UBIDECARENONE PO SCH (17:58)
[2019-11-12] MEDS: ASCORBIC ACID 500 MG TAB PO SCH (07:34)
[2019-11-12] MEDS: HEPARIN SODIUM,PORCINE 5,000 UNIT/ML 1 ML VIAL SQ SCH ×3 (07:34→20:41)
[2019-11-12] MEDS: PHENAZOPYRIDINE 200 MG TAB PO SCH ×3 (07:34→20:41)
[2019-11-12] MEDS: ERTAPENEM 1 GM in SODIUM CHLORIDE 0.9% 50 ML IVPB SCH (07:35)
[2019-11-12] MEDS: acetaZOLAMIDE 250 MG TAB PO SCH ×2 (07:35→20:42)
[2019-11-12] MEDS: CHOLECALCIFEROL 1,000 UNIT TAB PO SCH (07:35)
[2019-11-12] MEDS: UBIDECARENONE PO SCH (07:36)
[2019-11-12] MEDS: PANTOPRAZOLE 40 MG TABLET PO SCH ×2 (07:36→07:37)
[2019-11-12 08:25] LABS: Basophils % (A) 0 %; Eosinophils # (A) 0.1 k/uL (0-0.7); Eosinophils % (A) 2 %; HCT 39.9 % (34.0-46.0); HGB 12.9 gm/dL (11.4-16.0); Hypochromasia Slight; Lymphocytes # (A) 2.7 k/uL (1.0-4.8); Lymphocytes % (A) 37 %; MCH 30.1 pg (25.0-35.0); MCHC 32.4 g/dL (31.0-37.0); MCV 93.1 fL (80.0-100.0); Monocytes # (A) 0.5 k/uL (0-1.0); Monocytes % (A) 7 %; Neutrophils # (A) 3.7 k/uL (1.3-7.7); Neutrophils % (A) 52 %; Platelet Count 178 k/uL (150-450); RBC 4.29 m/uL (3.80-5.40); RDW 13.4 % (11.5-15.5); WBC 7.2 k/uL (3.8-10.6)
[2019-11-12 08:39] LABS: Calcium 8.5 mg/dL (8.4-10.2); Potassium 3.7 mmol/L (3.5-5.1)
[2019-11-12] MEDS ORDERED: NON FORMULARY DRUG (Ubidecarenone [Co Q-10] 100 MG) PO SCH (09:00)
--- NOTE | 2019-11-12 15:20 | PN ---
PROGRESS NOTE DATE OF SERVICE: 11/12/2019 REASON FOR FOLLOWUP: Urinary tract infection with multi-drug allergies. INTERVAL HISTORY: The patient is currently afebrile. The patient is breathing comfortably. Still complains of some burning of the urine. No chest pain, shortness of breath or cough. No abdominal pain or diarrhea. PHYSICAL EXAMINATION: Blood pressure is 150/70 with a pulse of 61, temperature 97.7. She is 96% on room air. General description is an elderly female lying in bed in no distress. RESPIRATORY SYSTEM: Unlabored breathing. Clear to auscultation anteriorly. HEART: S1, S2. Regular rate and rhythm. ABDOMEN: Soft. No tenderness. LABS: Hemoglobin is 12.1, white count 7.2, BUN is 15, creatinine 0.77. Urine has been finalized with Morganella and E coli. DIAGNOSTIC IMPRESSION AND PLAN: Patient with a urinary tract infection with Morganella and Escherichia coli in this patient with MULTIPLE ANTIBIOTIC ALLERGIES. We tried to send the patient home on oral Cipro; she refused, saying it caused her tendinitis and would not take it for 2 to 3 days, either. We will keep the patient on Invanz to finish a 5-day course of therapy. That should be adequate treatment for cystitis, as clinically doubt pyelonephritis or deep infection. All questions and concerns were answered. MMODL / IJN: [id number] /
--- NOTE | 2019-11-12 17:33 | PN ---
PROGRESS NOTE DATE OF SERVICE: 11/12/2019 This 78-year-old woman was admitted with acute UTI at the time of admission, had multiple organisms grown from the culture. Patient is growing Morganella and E coli. At this time E coli is poly sensitive. No chest pain. No palpitations. No fever. PHYSICAL EXAMINATION: Alert and orient x3, pulse is 50, blood pressure 124/70, respirations 16, temperature 97.8, pulse ox 98% on room air. HEENT: Conjunctivae normal. NECK: No jugular venous distension. CARDIOVASCULAR SYSTEM: S1, S2, muffled. RESPIRATION: Breath sound diminished at the bases, no rhonchi, no crackles. ABDOMEN: Soft, nontender. LEGS: No edema. No swelling. NERVOUS SYSTEM: No focal deficits. LABS: CBC within normal limits and chloride is 113. ASSESSMENT: 1. Acute urinary tract infection present on admission with Morganella morganii and E coli. 2. History of multiple antibiotic and medication allergies. 3. Decreased CO2. 4. History of asthma, chronic obstructive pulmonary disease. 5. History of chest pain. 6. History of right lung cancer status post radiation. 7. History of pneumonia. 8. History of hypothyroidism. 9. History of uterine cancer. 10.History of glaucoma. 11.History of cardiac catheterization. 12.History of tonsillectomy. 13.History of left LAD stent with CAD. 14.Mild hypokalemia. 15.FULL CODE. RECOMMENDATION: Recommend to continue with current medications, management and symptomatic treatment. Otherwise, at this time continue the antibiotics. Dr. Prater has recommended one more day of IV antibiotics followed by complete course of antibiotic. Further recommendations to follow. MMODL / IJN: [id number] /
[2019-11-12 17:55] LABS: Appearance,Urine Clear (Clear); Bilirubin,Urine Negative (Negative); Blood,Urine Negative (Negative); Color,Urine Dark Yellow; Glucose,Urine (UA) Negative (Negative); Ketones,Urine Negative (Negative); Leukocyte Esterase,Urine Negative (Negative); Nitrite,Urine Positive (Negative); Protein,Urine Negative (Negative); RBC,Urine <1 /hpf (0-5); Specific Gravity,Urine 1.004 (1.001-1.035); Squamous Epithelial Cell,Urine <1 /hpf (0-4); Urobilinogen,Urine <2.0 mg/dL (<2.0); WBC,Urine 2 /hpf (0-5)
[2019-11-13 07:24] VITALS: BP 129/80; PULSE 58; RESP 16; TEMP 97.6
[2019-11-13] MEDS: PANTOPRAZOLE 40 MG TABLET PO SCH (07:35)
[2019-11-13] MEDS: PHENAZOPYRIDINE 200 MG TAB PO SCH (07:39)
[2019-11-13] MEDS: ERTAPENEM 1 GM in SODIUM CHLORIDE 0.9% 50 ML IVPB SCH (07:39)
[2019-11-13] MEDS: UBIDECARENONE PO SCH (07:40)
[2019-11-13] MEDS: ASCORBIC ACID 500 MG TAB PO SCH (07:40)
[2019-11-13] MEDS: HEPARIN SODIUM,PORCINE 5,000 UNIT/ML 1 ML VIAL SQ SCH (07:40)
[2019-11-13] MEDS: acetaZOLAMIDE 250 MG TAB PO SCH (07:40)
[2019-11-13] MEDS: CHOLECALCIFEROL 1,000 UNIT TAB PO SCH (07:40)
[2019-11-13] MEDS ORDERED: NON FORMULARY DRUG (Garlic [Garlic] 1 TAB) PO SCH (09:00)
--- NOTE | 2019-11-13 19:07 | DS ---
DISCHARGE SUMMARY DATE OF SERVICE: 11/13/2019 FINAL DIAGNOSES: 1. Acute urinary tract infection present on admission with Morganella morganii and E coli. 2. History of multiple antibiotic and medication allergies. 3. Decreased carbon dioxide. 4. History of asthma, chronic obstructive pulmonary disease. 5. History of chest pain, musculoskeletal. 6. History of right lung cancer status post radiation. 7. History of pneumonia. 8. History of hypothyroidism. 9. History of uterine cancer. 10.History of glaucoma. 11.History of cardiac catheterization. 12.History of tonsillectomy. 13.History of LAD stent and coronary artery disease. 14.Mild hypokalemia. 15.FULL CODE. DISCHARGE CONDITION: The patient will be discharged in stable condition with guarded prognosis. HISTORY OF PRESENT ILLNESS: This 78-year-old woman with a past medical history of multiple medical problems was admitted with acute UTI with Morganella morganii and E coli. The patient was treated with antibiotics. The patient improved significantly. IV Invanz was given by Dr. Prater who recommended followup Cipro which the patient is not willing to take otherwise because of concerns of reactions. The patient to follow with Dr. Julien Redmond in outpatient setting. On exam, vitals stable. Cardiovascular system: S1, S2. Abdomen soft. Nervous system, no focal deficits. DISCHARGE DIET: Cardiac diet. ACTIVITY: Limited until followup. FOLLOW UP: Follow up with Dr. Julien Redmond in 1-2 days. Follow up with Dr. Prater as recommended. MEDICATIONS: 1. Coenzyme Q10, 100 mg p.o. daily. 2. Diamox 500 mg p.o. b.i.d. 3. Garlic 1 tab. 4. [place] biloba daily. 5. Lysine 1000 mg p.o. 6. Magnesium oxide 400 mg q.h.s. 7. Albuterol 6.7 g 1 puff q.i.d. p.r.n. 8. Sea kelp daily. 9. Vitamin C 1000 mg p.o. daily. 10.Vitamin D3 2000 daily. 11.Nitrostat 0.4 sublingual p.r.n. MMJARETHL / SREEN: [id number] /
== END 2019-11-13 15:36 | disposition home or self-care (01) | DRG 690 ==
LOC: EC 15:09 → 5NMEDONC 18:33 → 4SSUR 21:17 → OBSVTOIN 11-10 04:44 → INTOOBSV 11-10 04:44
PROVIDERS: ADMIT Hospitalist; ATTEND Hospitalist
DX: N30.90 Cystitis, unspecified without hematuria (principal); B96.20 Unspecified Escherichia coli [E. coli] as the cause of diseases classified elsewhere; B96.89 Other specified bacterial agents as the cause of diseases classified elsewhere; E03.9 Hypothyroidism, unspecified; E87.6 Hypokalemia; I25.10 Atherosclerotic heart disease of native coronary artery without angina pectoris; I25.2 Old myocardial infarction; J44.9 Chronic obstructive pulmonary disease, unspecified; Z53.29 Procedure and treatment not carried out because of patient's decision for other reasons; Z87.440 Personal history of urinary (tract) infections; Z87.01 Personal history of pneumonia (recurrent); Z92.3 Personal history of irradiation; Z79.02 Long term (current) use of antithrombotics/antiplatelets; Z79.899 Other long term (current) drug therapy; Z11.59 Encounter for screening for other viral diseases; Z82.49 Family history of ischemic heart disease and other diseases of the circulatory system; Z85.118 Personal history of other malignant neoplasm of bronchus and lung; Z85.42 Personal history of malignant neoplasm of other parts of uterus; Z90.711 Acquired absence of uterus with remaining cervical stump; Z95.5 Presence of coronary angioplasty implant and graft; Z96.651 Presence of right artificial knee joint; H40.9 Unspecified glaucoma; Z88.0 Allergy status to penicillin; Z88.2 Allergy status to sulfonamides; Z88.8 Allergy status to other drugs, medicaments and biological substances; Z88.6 Allergy status to analgesic agent; Z88.1 Allergy status to other antibiotic agents; Z91.030 Bee allergy status
CPT/HCPCS: 36415; 80048; 80053; 81001; 83605; 83690; 83704; 84439; 84443; 84481; 85025; 87040; 87077; 87086; 87186; 87635; 96361; 96365; 96366; 99284

== ENCOUNTER 2020-02-02 13:16 | Emergency (ER) | payer MEDICARE, BC ==
[2020-02-02] MEDS ORDERED: cefTRIAXone IN SWFI 1,000 MG/10 ML SYRINGE IVP STA (13:58)
--- NOTE | 2020-02-02 14:05 | ED ---
General Adult HPI - General Source: patient, family, RN notes reviewed Mode of arrival: wheelchair Limitations: no limitations <Thomas Izquierdo - Last Filed: 02/02/20 15:31> <Kiki Jarvis - Last Filed: 02/02/20 22:13> - General Chief complaint: Abdominal Pain Stated complaint: Abd Pain, UTI Time Seen by Provider: 02/02/20 13:30 - History of Present Illness Initial comments: 79-year-old female with a past medical history of asthma, uterine cancer, COPD presents to the emergency department for a chief complaint of urinary tract infection. Patient reports she has been struggling with a urinary tract infection for about a week. States it is painful to urinate. Denies any significant abdominal pain. Patient states that she sees infectious disease for urinary tract infection and Sayjeffry sent her over to the hospital to try a new antibiotic. Patient reports that she was receiving Invanz through a peripheral IV however that started to make her legs hurt.Patient has no other complaints at this time including shortness of breath, chest pain, abdominal pain, nausea or vomiting, headache, or visual changes. (Thomas Izquierdo) - Related Data Home Medications Medication Instructions Recorded Confirmed Albuterol Sulfate [Proventil Hfa] 1 puff INHALATION RT-Q4H PRN 04/17/16 11/10/19 Ascorbic Acid [Vitamin C] 1,000 mg PO DAILY 04/17/16 11/10/19 Cholecalciferol [Vitamin D3 (25 2,000 unit PO DAILY 04/17/16 11/10/19 Mcg = 1000 Iu)] Garlic 1 tab PO DAILY 04/17/16 11/10/19 Lysine 1,000 mg PO DAILY 04/17/16 11/10/19 Ubidecarenone [Co Q-10] 100 mg PO DAILY 04/17/16 11/11/19 Ginkgo Biloba 500 mg PO DAILY 10/23/17 11/10/19 acetaZOLAMIDE [Diamox] 500 mg PO BID 10/23/17 11/10/19 Magnesium Oxide [Magox 400] 400 mg PO HS 11/10/19 11/10/19 Sea Kelp 150mcg 150 mcg PO DAILY 11/10/19 11/10/19 Ubidecarenone [Co Q-10] 100 mg PO DAILY 11/11/19 11/11/19 Previous Rx's Medication Instructions Recorded Nitroglycerin Sl Tabs [Nitrostat] 0.4 mg SUBLINGUAL Q5M PRN #25 tab 04/22/16 Cefuroxime Axetil [Ceftin] 500 mg PO BID 7 Days #14 tab 02/02/20 Allergies Allergy/AdvReac Type Severity Reaction Status Date / Time acetaminophen [From Lortab] Allergy Unknown Verified 11/10/19 10:43 atorvastatin [From Lipitor] Allergy Unknown Verified 11/10/19 10:43 bee venom protein (honey bee) Allergy Anaphylaxis Verified 11/10/19 10:43 budesonide [From Symbicort] Allergy Unknown Verified 11/10/19 10:43 cefadroxil [From Duricef] Allergy Unknown Verified 11/10/19 10:43 codeine Allergy Unknown Verified 11/10/19 10:43 cortisone Allergy Unknown Verified 11/10/19 10:43 diphenhydramine Allergy Unknown Verified 11/10/19 10:43 [From Benadryl] erythromycin base Allergy Unknown Verified 11/10/19 10:43 formoterol [From Symbicort] Allergy Unknown Verified 11/10/19 10:43 hydrocodone [From Lortab] Allergy Unknown Verified 11/10/19 10:43 meperidine [From Demerol] Allergy Unknown Verified 11/10/19 10:43 nalbuphine [From Nubain] Allergy Unknown Verified 11/10/19 10:43 naproxen [From Naprosyn] Allergy Unknown Verified 11/10/19 10:43 nitrofurantoin Allergy Diarrhea Verified 11/12/19 16:09 [From Macrobid] Penicillins Allergy Unknown Verified 11/10/19 10:43 prednisone Allergy Unknown Verified 11/10/19 10:43 Sulfa (Sulfonamide Allergy Unknown Verified 11/10/19 10:43 Antibiotics) sulfamethoxazole Allergy Unknown Verified 11/10/19 10:43 [From Bactrim] Tetracyclines Allergy Unknown Verified 11/10/19 10:43 tiotropium Allergy Unknown Verified 11/10/19 10:43 [From Spiriva with HandiHaler] trimethoprim [From Bactrim] Allergy Unknown Verified 11/10/19 10:43 aspirin AdvReac Unknown Verified 11/12/19 16:10 cephalexin [From Keflex] AdvReac Unknown Verified 11/12/19 16:06 Childhood ciprofloxacin [From Cipro] AdvReac Unknown Verified 11/12/19 16:01 ibuprofen [From Motrin] AdvReac Unknown Verified 11/12/19 16:05 levofloxacin [From Levaquin] AdvReac Unknown Verified 11/12/19 16:02 MUSCLE RELAXERS AdvReac Unknown Uncoded 11/10/19 10:43 prolensa eye drop AdvReac Unknown Uncoded 11/10/19 10:43 steroids AdvReac Unknown Uncoded 11/10/19 10:43 Review of Systems ROS Other: All systems not noted in ROS Statement are negative. <Thomas Izquierdo P - Last Filed: 02/02/20 15:31> ROS Other: All systems not noted in ROS Statement are negative. <Kiki Jarvis A - Last Filed: 02/02/20 22:13> ROS Statement: Those systems with pertinent positive or pertinent negative responses have been documented in the HPI. Past Medical History Past Medical History: Asthma, Cancer, Chest Pain / Angina, COPD, Pneumonia, Thyroid Disorder Additional Past Medical History / Comment(s): uterine cancer 1973, rt eye glaucoma, poor circulation,uti, arthritis-herniated discs, 04-17-16- nstemi. History of Any Multi-Drug Resistant Organisms: None Reported Past Surgical History: Heart Catheterization, Joint Replacement, Orthopedic Surgery, Tonsillectomy Additional Past Surgical History / Comment(s): 04-17-16 heart cath with stent to lad,rt knee replacement, alexys cataracts,sking tags removed, colonoscopy/egd, partial hysterectomy, rt foot sx, lt knee arthroscopy. Additional Past Anesthesia/Blood Transfusion Reaction / Comment(s): multiple med allergies-see list Past Psychological History: No Psychological Hx Reported Smoking Status: Never smoker Past Alcohol Use History: None Reported Past Drug Use History: None Reported - Past Family History Father Family Medical History: Congestive Heart Failure (CHF) Mother Family Medical History: Myocardial Infarction (PA) Additional Family Medical History / Comment(s): cabg <Thomas Izquierdo P - Last Filed: 02/02/20 15:31> General Exam Limitations: no limitations General appearance: alert, in no apparent distress Head exam: Present: atraumatic, normocephalic, normal inspection Eye exam: Present: normal appearance, PERRL, EOMI. Absent: scleral icterus, conjunctival injection, periorbital swelling ENT exam: Present: normal exam, mucous membranes moist Neck exam: Present: normal inspection. Absent: tenderness, meningismus, lymphadenopathy Respiratory exam: Present: normal lung sounds bilaterally. Absent: respiratory distress, wheezes, rales, rhonchi, stridor Cardiovascular Exam: Present: regular rate, normal rhythm, normal heart sounds. Absent: systolic murmur, diastolic murmur, rubs, gallop, clicks GI/Abdominal exam: Present: soft, normal bowel sounds. Absent: distended, tenderness, guarding, rebound, rigid Back exam: Absent: CVA tenderness (R), CVA tenderness (L) <Thomas Izquierdo P - Last Filed: 02/02/20 15:31> Course Vital Signs 02/02/20 02/02/20 02/02/20 13:24 14:39 14:51 Temperature 97.9 F Pulse Rate 64 50 L 58 L Respiratory 20 18 18 Rate Blood Pressure 159/88 191/90 177/86 O2 Sat by Pulse 100 98 98 Oximetry 02/02/20 15:39 Temperature 97.1 F L Pulse Rate 52 L Respiratory 18 Rate Blood Pressure 171/96 O2 Sat by Pulse 100 Oximetry Medical Decision Making - Lab Data Result diagrams: 02/02/20 14:25 02/02/20 14:25 <Thomas Izquierdo - Last Filed: 02/02/20 15:31> - Lab Data Result diagrams: 02/02/20 14:25 02/02/20 14:25 <Kiki Jarvis - Last Filed: 02/02/20 22:13> - Medical Decision Making I did call Dr. Salcedo. He would like us to try to give 2 g of IV Rocephin. If patient tolerates this he recommends on 500 mg of by mouth Ceftin twice daily for 7 days. I did review culture and it shows E. coli with good sensitivity. patient tolerated Rocephin well. She was monitored for over an hour after antibiotic was given. As directed by Dr. Prater patient will be started on Ceftin. Patient is requesting peripheral IV be removed as this was for Invanz. We did remove this for her comfort. Patient will follow up with Dr. Prater and return for any worsening symptoms. (Thomas Izquierdo) I was available for consultation in the emergency department. The history and physical exam were done by the midlevel provider. I was consulted for this patients care. I reviewed the case with the midlevel provider and based on their presentation of the patient, I agree with the assessment, medical decision making and plan of care as documented. Chart was dictated using [employer] dictation software. Attempts were made to correct any dictation errors however some typographical errors may persist. Patient was seen during a [facility] due to the Covid-19 pa ndemic. (Kiki Jarvis) - Lab Data Lab Results 02/02/20 02/02/20 02/02/20 Range/Units 14:25 14:25 14:25 WBC 7.2 (3.8-10.6) k/uL RBC 4.90 (3.80-5.40) m/uL Hgb 14.1 (11.4-16.0) gm/dL Hct 45.1 (34.0-46.0) % MCV 92.0 (80.0-100.0) fL MCH 28.8 (25.0-35.0) pg MCHC 31.3 (31.0-37.0) g/dL RDW 13.8 (11.5-15.5) % Plt Count 184 (150-450) k/uL Neutrophils % 53 % Lymphocytes % 36 % Monocytes % 7 % Eosinophils % 2 % Basophils % 0 % Neutrophils # 3.8 (1.3-7.7) k/uL Lymphocytes # 2.6 (1.0-4.8) k/uL Monocytes # 0.5 (0-1.0) k/uL Eosinophils # 0.1 (0-0.7) k/uL Basophils # 0.0 (0-0.2) k/uL Hypochromasia Slight Sodium 138 (137-145) mmol/L Potassium 3.6 (3.5-5.1) mmol/L Chloride 114 H (98-107) mmol/L Carbon Dioxide 16 L (22-30) mmol/L Anion Gap 8 mmol/L BUN 11 (7-17) mg/dL Creatinine 0.65 (0.52-1.04) mg/dL Est GFR (CKD-EPI)AfAm >90 (>60 ml/min/1.73 sqM) Est GFR (CKD-EPI)NonAf 84 (>60 ml/min/1.73 sqM) Glucose 89 (74-99) mg/dL Calcium 8.5 (8.4-10.2) mg/dL Total Bilirubin 0.4 (0.2-1.3) mg/dL AST 28 (14-36) U/L ALT 13 (4-34) U/L Alkaline Phosphatase 64 (38-126) U/L Total Protein 6.9 (6.3-8.2) g/dL Albumin 3.5 (3.5-5.0) g/dL Urine Color Colorless Urine Appearance Clear (Clear) Urine pH 7.0 (5.0-8.0) Ur Specific [place] 1.003 (1.001-1.035) Urine Protein Negative (Negative) Urine Glucose (UA) Negative (Negative) Urine Ketones Negative (Negative) Urine Blood Negative (Negative) Urine Nitrite Negative (Negative) Urine Bilirubin Negative (Negative) Urine Urobilinogen <2.0 (<2.0) mg/dL Ur Leukocyte Esterase Moderate H (Negative) Urine RBC <1 (0-5) /hpf Urine WBC 35 H (0-5) /hpf Ur Squamous Epith Cells <1 (0-4) /hpf Urine Bacteria Rare H (None) /hpf Disposition Is patient prescribed a controlled substance at d/c from ED?: No Time of Disposition: 15:33 <Thomas Izquierdo P - Last Filed: 02/02/20 15:31> <Kiki Jarvis - Last Filed: 02/02/20 22:13> Clinical Impression: Urinary tract infection Disposition: HOME SELF-CARE Condition: Good Instructions (If sedation given, give patient instructions): Urinary Tract Infection in Women (ED) Additional Instructions: please take antibiotic as directed. Follow-up with Dr. Prater. Return to the emergency room for any worsening symptoms. Prescriptions: Cefuroxime Axetil [Ceftin] 500 mg PO BID 7 Days #14 tab Referrals: Julien Redmond MD [Primary Care Provider] - 1-2 days Patti Prater MD [STAFF PHYSICIAN] - 1-2 days
[2020-02-02 14:36] LABS: Basophils % (A) 0 %; Eosinophils # (A) 0.1 k/uL (0-0.7); Eosinophils % (A) 2 %; HCT 45.1 % (34.0-46.0); HGB 14.1 gm/dL (11.4-16.0); Hypochromasia Slight; Lymphocytes # (A) 2.6 k/uL (1.0-4.8); Lymphocytes % (A) 36 %; MCH 28.8 pg (25.0-35.0); MCHC 31.3 g/dL (31.0-37.0); Mean Platelet Volume 8.9; Monocytes # (A) 0.5 k/uL (0-1.0); Monocytes % (A) 7 %; Neutrophils # (A) 3.8 k/uL (1.3-7.7); Neutrophils % (A) 53 %; Platelet Count 184 k/uL (150-450); RDW 13.8 % (11.5-15.5); WBC 7.2 k/uL (3.8-10.6)
[2020-02-02 14:40] VITALS: RESP 18
[2020-02-02 14:47] LABS: Appearance,Urine Clear (Clear); Bacteria,Urine Rare /hpf; Bilirubin,Urine Negative (Negative); Blood,Urine Negative (Negative); Color,Urine Colorless; Glucose,Urine (UA) Negative (Negative); Ketones,Urine Negative (Negative); Leukocyte Esterase,Urine Moderate (Negative); Nitrite,Urine Negative (Negative); Protein,Urine Negative (Negative); RBC,Urine <1 /hpf (0-5); Specific Gravity,Urine 1.003 (1.001-1.035); Squamous Epithelial Cell,Urine <1 /hpf (0-4); Urobilinogen,Urine <2.0 mg/dL (<2.0); WBC,Urine 35 /hpf (0-5)
[2020-02-02 14:49] LABS: ALT 13 U/L (4-34); AST 28 U/L (14-36); African American GFR (CKD) >90 (>60 ml/min/1.73 sqM); Albumin 3.5 g/dL (3.5-5.0); Alkaline Phosphatase 64 U/L (38-126); Anion Gap 8 mmol/L; Blood Urea Nitrogen 11 mg/dL (7-17); Calcium 8.5 mg/dL (8.4-10.2); Carbon Dioxide 16 mmol/L (22-30); Chloride 114 mmol/L (98-107); Glucose 89 mg/dL (74-99); Non-African American GFR(CKD) 84 (>60 ml/min/1.73 sqM); Potassium 3.6 mmol/L (3.5-5.1); Sodium 138 mmol/L (137-145); Total Bilirubin 0.4 mg/dL (0.2-1.3); Total Protein 6.9 g/dL (6.3-8.2)
[2020-02-02 15:48] VITALS: BP 171/96; PULSE 52; TEMP 97.1
== END 2020-02-02 15:47 | disposition home or self-care (01) ==
LOC: EC 13:16
DX: N39.0 Urinary tract infection, site not specified (principal); B96.20 Unspecified Escherichia coli [E. coli] as the cause of diseases classified elsewhere; J44.9 Chronic obstructive pulmonary disease, unspecified; H40.9 Unspecified glaucoma; I25.2 Old myocardial infarction; Z79.899 Other long term (current) drug therapy; Z88.0 Allergy status to penicillin; Z88.2 Allergy status to sulfonamides; Z88.6 Allergy status to analgesic agent; Z88.8 Allergy status to other drugs, medicaments and biological substances; Z91.030 Bee allergy status; Z88.1 Allergy status to other antibiotic agents; Z88.5 Allergy status to narcotic agent; Z88.3 Allergy status to other anti-infective agents; Z85.42 Personal history of malignant neoplasm of other parts of uterus; Z96.651 Presence of right artificial knee joint; Z90.710 Acquired absence of both cervix and uterus
CPT/HCPCS: 36415; 80053; 85025; 81001; 87086; 99283; 96374; 96376; J0696

== ENCOUNTER → 2020-02-11 | Outpatient (CLI) | payer MEDICARE, BC ==
--- NOTE | 2020-02-11 16:23 | CT ---
EXAMINATION TYPE: CT abdomen pelvis w con DATE OF EXAM: 02/11/2020 COMPARISON: None INDICATION: Changes in bowel habits. Right lower quadrant pain. DLP: 1383.4 mGycm, Automated exposure control for dose reduction was used. CONTRAST: 100 mL of Isovue M300. Study performed with Oral Contrast TECHNIQUE: Axial images were obtained from above the diaphragm to the pubic rami in the axial plane a t 5 mm thick sections. Reconstructed images are reviewed on the computer in the coronal plane. FINDINGS: Limited CT sections are obtained the lung bases. The lung bases are clear. There is a small hiatal hernia. CT ABDOMEN: Liver: Normal Spleen: Normal. A small splenule is at the hilum. Pancreas: Normal Adrenal glands: The adrenal glands are normal. Gallbladder: Normal Kidneys: No masses are evident. No hydronephrosis is present. No cysts are present. Delayed images were obtained through the kidneys, which remain unremarkable. Aorta: Vascular calcification is within the aorta. Inferior vena cava: Normal. CT PELVIS: Loops of bowel within the abdomen and pelvis are normal. There are loops of bowel which are incom pletely distended or lack oral contrast limiting their evaluation. Fecal debris is within the colon. Appendix: Not visualized. No suspicious inflammatory changes or dilated tubular structures are eviden t. Urinary bladder: Normal. Genitourinary structures: Uterus and ovaries are not identified. Osseous structures: No suspicious lytic or sclerotic lesions. Degenerative disc changes are within th e lumbar spine. Scoliosis is present. IMPRESSIONS: 1. No suspicious changes to suggest acute appendicitis. The appendix is not identified and clinical management of any suspected appendicitis will be required. 2. Moderate fecal retention throughout the colon
== END | disposition home or self-care (01) ==
LOC: RADCTMAIN 11:42
PROVIDERS: ATTEND Family Medicine
DX: K59.00 Constipation, unspecified (principal)
CPT/HCPCS: 74177; Q9967 ×2

== ENCOUNTER 2020-06-14 10:48 | Day surgery (SDC) | payer MEDICARE, BC ==
[2020-06-13 13:16] VITALS: BMI 31.6
[2020-06-14] MEDS ORDERED: LACTATED RINGERS 1,000 ML IV ONE ×2 (11:10)
[2020-06-14 11:28] VITALS: RESP 16; TEMP 98.5
[2020-06-14] MEDS ORDERED: LIDOCAINE 1% (10MG/ML) FOR IV START INTRADERMA ONE (11:29)
[2020-06-14] MEDS ORDERED: PROPOFOL 10 MG/ML 20 ML VIAL IV ONE (11:35)
[2020-06-14] MEDS ORDERED: LIDOCAINE 1% INJ 10MG/ML (20 ML MDV) ONE (11:35)
--- NOTE | 2020-06-14 11:50 | P.PCN ---
Date of Procedure: 06/14/20 Procedure(s) Performed: BRIEF HISTORY: Patient is a [id number], pleasant, white female scheduled for an upper endoscopy as a part of evaluation of intermittent dysphagia to solids and epigastric and left upper quadrant abdominal pain on and off for the last several months duration.. PROCEDURE PERFORMED: Esophagogastroduodenoscopy with biopsy. PREOPERATIVE DIAGNOSIS: Intermittent dysphagia to solids and abdominal pain. IV sedation per anesthesia. PROCEDURE: After informed consent was obtained, the patient was brought into the endoscopy unit. IV sedation was administered by Anesthesia under continuous monitoring. Initially the Olympus GIF-140 video endoscope was inserted into the mouth. Esophagus intubated without any difficulty. It was gradually advanced into the stomach and duodenum and carefully examined. The bulb and the second part of the duodenum appeared normal. The scope at this time was withdrawn to the stomach, adequately insufflated with air, and upon careful examination, mucosa of the antrum, appeared normal. There was diffuse gastritis noted in the distal body the stomach and multiple biopsies were done from this area. body, cardia and the fundus appeared normal. The scope was then withdrawn into the esophagus. The GE junction was located at 35 cm from the incisors. Alon hiatal hernia noted. The rest of the esophagus appeared normal. There were 2 superficial erosions at the GE junction consistent with LA grade B reflux esophagitis. Biopsies were done from the distal esophagus and the patient tolerated the procedure well. IMPRESSION: 1. Diffuse gastritis involving the distal body the stomach there is post multiple biopsies. 2. Small hiatal hernia. 3. Linear erosions in the distal esophagus consistent with LA grade B reflux esophagitis 4. No evidence of esophageal stricture RECOMMENDATIONS: The findings of this examination were discussed with the patient as well as a family. She was advised to follow with the biopsy results. She was given a prescription for Prilosec 20 mg daily and was briefly educated about antireflux measures..
[2020-06-14 12:28] VITALS: BP 118/70; PULSE 51
== END 2020-06-14 12:36 | disposition home or self-care (01) ==
LOC: ORWHC2ENDO 10:48
PROVIDERS: ATTEND Internal Medicine Gastroenterology
DX: K29.50 Unspecified chronic gastritis without bleeding (principal); K22.10 Ulcer of esophagus without bleeding; K44.9 Diaphragmatic hernia without obstruction or gangrene; I25.2 Old myocardial infarction; I25.10 Atherosclerotic heart disease of native coronary artery without angina pectoris; I73.9 Peripheral vascular disease, unspecified; J44.9 Chronic obstructive pulmonary disease, unspecified; E07.9 Disorder of thyroid, unspecified; Z98.811 Dental restoration status; Z95.5 Presence of coronary angioplasty implant and graft; Z79.899 Other long term (current) drug therapy; Z90.710 Acquired absence of both cervix and uterus; Z96.651 Presence of right artificial knee joint; Z98.890 Other specified postprocedural states; Z87.898 Personal history of other specified conditions; Z85.42 Personal history of malignant neoplasm of other parts of uterus
CPT/HCPCS: 88305; 88342; 43239; J2001; J2704

== ENCOUNTER 2021-02-12 16:14 | Observation (INO) | payer MEDICARE, BC ==
[2021-02-12] MEDS ORDERED: ERTAPENEM 1 GM in SODIUM CHLORIDE 0.9% 50 ML IVPB STA (19:25)
--- NOTE | 2021-02-12 19:47 | ED ---
General Adult HPI - General Source: patient, RN notes reviewed Mode of arrival: ambulatory Limitations: no limitations <Alexandro Miller - Last Filed: 02/12/21 19:45> <Kiki Jarvis - Last Filed: 02/17/21 14:44> - General Chief complaint: Recheck/Abnormal Lab/Rx Stated complaint: Sent by Dr/Boogie BP/UTI Time Seen by Provider: 02/12/21 19:01 - History of Present Illness Initial comments: This is an 80-year-old female presents emergency Department with chief complaint of recheck infection, blood pressure issues. Patient states she has been on antibiotics for over one month she has multiple ALLERGIES and having difficulty treating her urinary tract infection. She's had increased weakness, just was not feeling well. Patient sent in by PCP for admission. Patient denies any recent fever no chest pain or shortness of breath. She states she's been diagnosed with "emotional" pressure issues. Patient states she is on no medications. (Alexandro Miller) - Related Data Home Medications Medication Instructions Recorded Confirmed Albuterol Sulfate [Proventil Hfa] 2 puff INHALATION RT-Q4H PRN 04/17/16 02/12/21 acetaZOLAMIDE [Diamox] 500 mg PO BID 10/23/17 02/12/21 L.acidoph,Paracasei, B.lactis 1 each PO HS 06/13/20 02/12/21 [Probiotic] "Peak" Thyroid Support 2 tab PO DAILY 02/12/21 02/12/21 Aloe Vera Extract 25mg 2 tab PO BID 02/12/21 02/12/21 Ascorbic Acid [Vitamin C] 1,000 mg PO DAILY 02/12/21 02/12/21 Bilberry Fruit Extract 1 tab PO DAILY 02/12/21 02/12/21 Cholecalciferol [Vitamin D3 (25 100 mcg PO BID 02/12/21 02/12/21 Mcg = 1000 Iu)] Garlic Extract 1,000mg 1 tab PO DAILY 02/12/21 02/12/21 Ginkgo Biloba [place] Extract [Ginkgo 120 mg PO BID 02/12/21 02/12/21 Biloba] Lutein Gold 20mg 1 tab PO HS 02/12/21 02/12/21 Multivit-Min/Iron/Folic/Lutein 1 tab PO DAILY 02/12/21 02/12/21 [Centrum Silver Women Tablet] Sea Kelp W/ 200mcg Of Iodine 1 tab PO HS 02/12/21 02/12/21 Selenium 100 mcg PO HS 02/12/21 02/12/21 Ubidecarenone [Co Q-10] 100 mg PO HS 02/12/21 02/12/21 Vitamin B Complex 1 tab PO DAILY 02/12/21 02/12/21 Zinc 25mg 1 tab PO HS 02/12/21 02/12/21 Previous Rx's Medication Instructions Recorded Ertapenem [INVanz] 1 gm IVPB DAILY #7 each 02/14/21 Allergies Allergy/AdvReac Type Severity Reaction Status Date / Time bee venom protein (honey bee) Allergy Anaphylaxis Verified 02/12/21 20:47 cefuroxime Allergy "Rash, Verified 02/12/21 20:47 Blisters, Itching, Nausea" cortisone Allergy "Several Verified 02/12/21 20:47 Different Reactions" meperidine [From Demerol] Allergy "could not Verified 02/12/21 20:47 wake up for hours" nalbuphine [From Nubain] Allergy "could not Verified 02/12/21 20:47 wake up for hours" naproxen [From Naprosyn] Allergy Rash/Hives Verified 02/12/21 20:47 nitrofurantoin Allergy "Diarrhea, Verified 02/12/21 20:47 [From Macrobid] Severe Digestive Tract Pain, Headache, Dizziness" Penicillins Allergy Rash/Hives Verified 02/12/21 20:47 perfume Allergy Unknown Verified 02/12/21 21:06 trimethoprim [From Bactrim] Allergy Unknown Verified 02/12/21 20:47 atorvastatin [From Lipitor] AdvReac "Tendonitis Verified 02/12/21 20:47 " budesonide [From Symbicort] AdvReac "Mouth Verified 02/12/21 20:47 Blisters" cefadroxil [From Duricef] AdvReac Unknown Verified 02/12/21 20:47 cephalexin [From Keflex] AdvReac Unknown Verified 02/12/21 20:47 Childhood ciprofloxacin [From Cipro] AdvReac "Tendonitis Verified 02/12/21 20:47 " codeine AdvReac Unknown Verified 02/12/21 20:47 diphenhydramine AdvReac "could not Verified 02/12/21 21:06 [From Benadryl] wake up for hours" erythromycin base AdvReac Unknown Verified 02/12/21 20:47 formoterol [From Symbicort] AdvReac "Mouth Verified 02/12/21 20:47 Blisters" ibuprofen [From Motrin] AdvReac "Stomach Verified 02/12/21 20:47 Bleeding" levofloxacin [From Levaquin] AdvReac "Tendonitis Verified 02/12/21 20:47 " prednisone AdvReac "Several Verified 02/12/21 20:47 Different Reactions" Sulfa (Sulfonamide AdvReac Unknown Verified 02/12/21 21:06 Antibiotics) sulfamethoxazole AdvReac Unknown Verified 02/12/21 20:47 [From Bactrim] Tetracyclines AdvReac Unknown Verified 02/12/21 20:47 tiotropium AdvReac "Mouth Verified 02/12/21 20:47 [From Spiriva with Blisters" HandiHaler] MUSCLE RELAXERS AdvReac Unknown Uncoded 06/14/20 11:22 prolensa eye drop AdvReac "Eye Pain" Uncoded 02/12/21 20:47 steroids AdvReac "Several Uncoded 02/12/21 20:47 Different Reactions" Review of Systems ROS Other: All systems not noted in ROS Statement are negative. <Alexandro Miller - Last Filed: 02/12/21 19:45> ROS Other: All systems not noted in ROS Statement are negative. <Kiki Jarvis - Last Filed: 02/17/21 14:44> ROS Statement: Those systems with pertinent positive or pertinent negative responses have been documented in the HPI. Past Medical History Past Medical History: Asthma, Cancer, Myocardial Infarction ([place]), Osteoarthritis (OA), Pneumonia, Thyroid Disorder Additional Past Medical History / Comment(s): uterine cancer 1973, rt eye glaucoma, poor circulation, arthritis-herniated discs, mult UTI's since 2017, change in bowel movements, episodes of vomiiting after having a bowel movement, abdominal pain, " i feel my food in my stomach", "low heart rate" Last Myocardial Infarction Date:: 2016 History of Any Multi-Drug Resistant Organisms: None Reported Past Surgical History: No Surgical Hx Reported, Heart Catheterization, Heart Ca theterization With Stent, Hysterectomy, Joint Replacement, Orthopedic Surgery, Tonsillectomy Additional Past Surgical History / Comment(s): rt knee replacement, alexys cataracts,skin tags removed, colonoscopy/egd, one cardiac stent, rt foot sx, lt knee arthroscopy. deviated septum, Past Anesthesia/Blood Transfusion Reactions: Previous Problems w/ Anesthesia, Motion Sickness Additional Past Anesthesia/Blood Transfusion Reaction / Comment(s): dif waking up Date of Last Stent Placement:: 2015 Past Psychological History: No Psychological Hx Reported Smoking Status: Never smoker Past Alcohol Use History: None Reported Past Drug Use History: None Reported - Past Family History Mother Family Medical History: No Reported History Additional Family Medical History / Comment(s): cabg <Alexandro Miller - Last Filed: 02/12/21 19:45> General Exam Limitations: no limitations General appearance: alert, in no apparent distress Head exam: Present: atraumatic, normocephalic, normal inspection Neck exam: Present: normal inspection. Absent: tenderness, meningismus, lymphadenopathy Respiratory exam: Present: normal lung sounds bilaterally. Absent: respiratory distress, wheezes, rales, rhonchi, stridor Cardiovascular Exam: Present: regular rate, normal rhythm, normal heart sounds. Absent: systolic murmur, diastolic murmur, rubs, gallop, clicks GI/Abdominal exam: Present: soft, tenderness, normal bowel sounds. Absent: distended, guarding, rebound, rigid <Alexandro Miller - Last Filed: 02/12/21 19:45> Course Vital Signs 02/12/21 02/12/21 02/12/21 17:02 18:47 21:33 Temperature 98.1 F 98.4 F Pulse Rate 59 L 63 Respiratory 18 18 Rate Blood Pressure 193/87 189/89 169/84 O2 Sat by Pulse 98 98 97 Oximetry EKG Findings - EKG Comments: EKG Findings:: EKG performed at 9:35 sinus bradycardia rate of 53 OR 186 QRS 108 QTC is QTC 42/452 <Alexandro Miller - Last Filed: 02/12/21 19:45> Medical Decision Making <Alexandro Miller - Last Filed: 02/12/21 19:45> - Lab Data Result diagrams: 02/14/21 05:30 02/14/21 05:30 <Kiki Jarvis - Last Filed: 02/17/21 14:44> - Medical Decision Making Patient will be admitted for infectious disease consult, patient was started on Invanz. (Alexandro Miller) I was available for consultation in the emergency department. The history and physical exam were done by the midlevel provider. I was consulted for this patients care. I reviewed the case with the midlevel provider and based on their presentation of the patient, I agree with the assessment, medical decision making and plan of care as documented. Spoke with Stanley from Dr. Redmond office who agreed to admit the patient. Chart was dictated using [employer] dictation software. Attempts were made to correct any dictation errors however some typographical errors may persist. Patient was seen during a national state of emergency due to the Covid-19 pandemic. (Kiki Jarvis) - Lab Data Lab Results 02/12/21 02/12/21 Range/Units 18:50 19:30 Procalcitonin 0.05 (0.02-0.09) ng/mL Urine Color Colorless Urine Appearance Cloudy H (Clear) Urine pH 7.0 (5.0-8.0) Ur Specific [place] 1.004 (1.001-1.035) Urine Protein Negative (Negative) Urine Glucose (UA) Negative (Negative) Urine Ketones Negative (Negative) Urine Blood Negative (Negative) Urine Nitrite Negative (Negative) Urine Bilirubin Negative (Negative) Urine Urobilinogen <2.0 (<2.0) mg/dL Ur Leukocyte Esterase Large H (Negative) Urine RBC 4 (0-5) /hpf Urine WBC >182 H (0-5) /hpf Urine WBC Clumps Many H (None) /hpf Ur Squamous Epith Cells <1 (0-4) /hpf Amorphous Sediment Rare H (None) /hpf Urine Bacteria Occasional H (None) /hpf Disposition <Alexandro Miller - Last Filed: 02/12/21 19:45> <Kiki Jarvis - Last Filed: 02/17/21 14:44> Clinical Impression: Urinary tract infection, Weakness, Failure of outpatient treatment Disposition: ADMITTED IP TO THIS HOSP Condition: Fair
[2021-02-12] MEDS ORDERED: ACETAMINOPHEN TAB 325 MG TAB PO PRN (19:48)
[2021-02-12] MEDS ORDERED: ONDANSETRON 4 MG/2 ML VIAL IVP PRN (19:48)
[2021-02-12] MEDS ORDERED: NALOXONE 0.4 MG/ML 1 ML VIAL IV PRN (19:48)
[2021-02-12 20:00] LABS: Amorphous Sediment,Urine Rare /hpf; Appearance,Urine Cloudy (Clear); Bacteria,Urine Occasional /hpf; Bilirubin,Urine Negative (Negative); Blood,Urine Negative (Negative); Color,Urine Colorless; Glucose,Urine (UA) Negative (Negative); Ketones,Urine Negative (Negative); Leukocyte Esterase,Urine Large (Negative); Nitrite,Urine Negative (Negative); Protein,Urine Negative (Negative); RBC,Urine 4 /hpf (0-5); Specific Gravity,Urine 1.004 (1.001-1.035); Squamous Epithelial Cell,Urine <1 /hpf (0-4); Urobilinogen,Urine <2.0 mg/dL (<2.0); WBC,Urine >182 /hpf (0-5)
[2021-02-12] MEDS: SODIUM CHLORIDE 0.9% 1,000 ML IV SCH (20:32)
[2021-02-12 20:38] LABS: Basophils % (A) 0 %; Eosinophils # (A) 0.2 k/uL (0-0.7); Eosinophils % (A) 2 %; HCT 41.1 % (34.0-46.0); HGB 13.4 gm/dL (11.4-16.0); Lymphocytes # (A) 3.2 k/uL (1.0-4.8); Lymphocytes % (A) 42 %; MCH 30.8 pg (25.0-35.0); MCHC 32.7 g/dL (31.0-37.0); MCV 94.2 fL (80.0-100.0); Mean Platelet Volume 9.3; Monocytes # (A) 0.5 k/uL (0-1.0); Monocytes % (A) 7 %; Neutrophils # (A) 3.5 k/uL (1.3-7.7); Neutrophils % (A) 46 %; Platelet Count 181 k/uL (150-450); RBC 4.36 m/uL (3.80-5.40); RDW 13.9 % (11.5-15.5); WBC 7.6 k/uL (3.8-10.6)
[2021-02-12 20:46] LABS: ALT 11 U/L (4-34); AST 25 U/L (14-36); African American GFR (CKD) >90 (>60 ml/min/1.73 sqM); Albumin 3.7 g/dL (3.5-5.0); Alkaline Phosphatase 76 U/L (38-126); Anion Gap 10 mmol/L; Blood Urea Nitrogen 13 mg/dL (7-17); Carbon Dioxide 16 mmol/L (22-30); Chloride 112 mmol/L (98-107); Glucose 84 mg/dL (74-99); Non-African American GFR(CKD) 84 (>60 ml/min/1.73 sqM); Potassium 3.6 mmol/L (3.5-5.1); Sodium 138 mmol/L (137-145); Total Bilirubin 0.2 mg/dL (0.2-1.3); Total Protein 6.9 g/dL (6.3-8.2)
--- NOTE | 2021-02-12 20:47 | XR ---
EXAMINATION TYPE: XR chest 1V DATE OF EXAM: 02/12/2021 COMPARISON: 01/27/2018 HISTORY: Hypertension TECHNIQUE: Single view FINDINGS: There is no heart failure nor confluent pneumonic infiltrate. Costophrenic angles are clear . There is mild thoracic dextroscoliosis. There are no hilar masses. There is no pleural effusion. IMPRESSION: No active cardiopulmonary disease. No adverse change.
[2021-02-12 21:02] LABS: C Reactive Protein 0.5 mg/dL (<1.0)
[2021-02-12] MEDS ORDERED: ALBUTEROL NEBULIZED 2.5 MG/3 ML INHALATION PRN (21:15)
[2021-02-12 21:41] LABS: Erythrocyte Sedimentation Rate 20 mm/hr (0-20)
[2021-02-12] MEDS ORDERED: hydrALAZINE HCL 20 MG/ML 1 ML VIAL IVP PRN (21:49)
[2021-02-13] MEDS: CHOLECALCIFEROL 25 MCG (1000 IU) TABLET PO SCH ×2 (08:33→21:36)
[2021-02-13] MEDS: FOLIC ACID-VIT B COMPLEX-VIT C 1 CAP PO SCH (08:34)
[2021-02-13] MEDS: VIT A,C & E-LUTEIN-MINERALS 1 EACH TAB PO SCH (08:34)
[2021-02-13] MEDS: ASCORBIC ACID 500 MG TAB PO SCH (08:34)
[2021-02-13] MEDS: acetaZOLAMIDE 250 MG TAB PO SCH ×2 (08:34→21:37)
[2021-02-13] MEDS: ERTAPENEM 1 GM in SODIUM CHLORIDE 0.9% 50 ML IVPB SCH (08:42)
[2021-02-13] MEDS ORDERED: GINKGO BILOBA LEAF EXTRACT 30 MG PO SCH (09:00)
[2021-02-13] MEDS ORDERED: [UNRECOGNIZED DRUG - OTHER] PO SCH (09:00)
[2021-02-13] MEDS ORDERED: GARLIC EXTRACT PO SCH (09:00)
[2021-02-13] MEDS ORDERED: BILBERRY FRUIT EXTRACT PO SCH (09:00)
[2021-02-13] MEDS ORDERED: PANTOPRAZOLE 40 MG/10 ML VIAL IVP SCH (10:45)
[2021-02-13] MEDS: PANTOPRAZOLE 40 MG TABLET PO STA (11:54)
[2021-02-13] MEDS: SODIUM CHLORIDE 0.9% 1,000 ML IV SCH (11:55)
--- NOTE | 2021-02-13 18:09 | P.HPIM ---
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 Patient was sent from office due to recurrent urinary tract infections with resistant to oral antibiotics and sensitivity of antibiotics patient has multiple ALLERGIES. Patient had associated symptoms of dizziness, lightheadedness and generalized fatigue. Patient noted has CVA tenderness in the office. Patient had extensive diagnostic workup in emergency department revealing a urinary tract infection on admission. Patient initiated on Invanz 1 g daily; consultation with infectious disease regarding resistant urinary tract infections and several ALLERGIES. 02/13/2021 She is seen and examined at bedside. Patient resting comfortably. Patient denies fever, chills shortness of breath, chest pain, palpitations, abdominal pain, nausea or vomiting at this time. Vital signs and diagnostic testing results reviewed. Treatment plan discussed with patient and nurse. Awaiting recommendations from infectious disease regarding antibiotic therapy for outpatient. Patient no acute signs of distress. Review of Systems Constitutional: Reports weakness Ears, nose, mouth and throat: Reports as per HPI Cardiovascular: Reports as per HPI Respiratory: Reports as per HPI Gastrointestinal: Reports as per HPI Genitourinary: Reports as per HPI Menstruation: Reports as per HPI Musculoskeletal: Reports as per HPI Integumentary: Reports as per HPI Neurological: Reports as per HPI Psychiatric: Reports as per HPI Endocrine: Reports as per HPI Hematologic/Lymphatic: Reports as per HPI Allergic/Immunologic: Reports as per HPI Past Medical History Past Medical History: Asthma, Cancer, Myocardial Infarction ([place]), Osteoarthritis (OA), Pneumonia, Thyroid Disorder Additional Past Medical History / Comment(s): uterine cancer 1973, rt eye glaucoma, poor circulation, arthritis-herniated discs, mult UTI's since 2017, change in bowel movements, episodes of vomiiting after having a bowel movement, abdominal pain, " i feel my food in my stomach", "low heart rate" Last Myocardial Infarction Date:: 2016 History of Any Multi-Drug Resistant Organisms: None Reported Past Surgical History: No Surgical Hx Reported, Heart Catheterization, Heart Catheterization With Stent, Hysterectomy, Joint Replacement, Orthopedic Surgery, Tonsillectomy Additional Past Surgical History / Comment(s): rt knee replacement, alexys cataracts,skin tags removed, colonoscopy/egd, one cardiac stent, rt foot sx, lt knee arthroscopy. deviated septum, Past Anesthesia/Blood Transfusion Reactions: Previous Problems w/ Anesthesia, Motion Sickness Additional Past Anesthesia/Blood Transfusion Reaction / Comment(s): dif waking up Date of Last Stent Placement:: 2015 Past Psychological History: No Psychological Hx Reported Smoking Status: Never smoker Past Alcohol Use History: None Reported Past Drug Use History: None Reported - Past Family History Mother Family Medical History: No Reported History Additional Family Medical History / Comment(s): cabg Medications and Allergies Home Medications and Allergies Comment(s): Medications and ALLERGIES reviewed Home Medications Medication Instructions Recorded Confirmed Type Albuterol Sulfate [Proventil Hfa] 2 puff INHALATION RT-Q4H PRN 04/17/16 02/12/21 History acetaZOLAMIDE [Diamox] 500 mg PO BID 10/23/17 02/12/21 History L.acidoph,Paracasei, B.lactis 1 each PO HS 06/13/20 02/12/21 History [Probiotic] "Peak" Thyroid Support 2 tab PO DAILY 02/12/21 02/12/21 History Aloe Vera Extract 25mg 2 tab PO BID 02/12/21 02/12/21 History Ascorbic Acid [Vitamin C] 1,000 mg PO DAILY 02/12/21 02/12/21 History Bilberry Fruit Extract 1 tab PO DAILY 02/12/21 02/12/21 History Cholecalciferol [Vitamin D3 (25 100 mcg PO BID 02/12/21 02/12/21 History Mcg = 1000 Iu)] Garlic Extract 1,000mg 1 tab PO DAILY 02/12/21 02/12/21 History Ginkgo Biloba [place] Extract [Ginkgo 120 mg PO BID 02/12/21 02/12/21 History Biloba] Lutein Gold 20mg 1 tab PO HS 02/12/21 02/12/21 History Multivit-Min/Iron/Folic/Lutein 1 tab PO DAILY 02/12/21 02/12/21 History [Centrum Silver Women Tablet] Sea Kelp W/ 200mcg Of Iodine 1 tab PO HS 02/12/21 02/12/21 History Selenium 100 mcg PO HS 02/12/21 02/12/21 History Ubidecarenone [Co Q-10] 100 mg PO HS 02/12/21 02/12/21 History Vitamin B Complex 1 tab PO DAILY 02/12/21 02/12/21 History Zinc 25mg 1 tab PO HS 02/12/21 02/12/21 History Allergies Allergy/AdvReac Type Severity Reaction Status Date / Time bee venom protein (honey bee) Allergy Anaphylaxis Verified 02/12/21 20:47 cefuroxime Allergy "Rash, Verified 02/12/21 20:47 Blisters, Itching, Nausea" cortisone Allergy "Several Verified 02/12/21 20:47 Different Reactions" meperidine [From Demerol] Allergy "could not Verified 02/12/21 20:47 wake up for hours" nalbuphine [From Nubain] Allergy "could not Verified 02/12/21 20:47 wake up for hours" naproxen [From Naprosyn] Allergy Rash/Hives Verified 02/12/21 20:47 nitrofurantoin Allergy "Diarrhea, Verified 02/12/21 20:47 [From Macrobid] Severe Digestive Tract Pain, Headache, Dizziness" Penicillins Allergy Rash/Hives Verified 02/12/21 20:47 perfume Allergy Unknown Verified 02/12/21 21:06 trimethoprim [From Bactrim] Allergy Unknown Verified 02/12/21 20:47 atorvastatin [From Lipitor] AdvReac "Tendonitis Verified 02/12/21 20:47 " budesonide [From Symbicort] AdvReac "Mouth Verified 02/12/21 20:47 Blisters" cefadroxil [From Duricef] AdvReac Unknown Verified 02/12/21 20:47 cephalexin [From Keflex] AdvReac Unknown Verified 02/12/21 20:47 Childhood ciprofloxacin [From Cipro] AdvReac "Tendonitis Verified 02/12/21 20:47 " codeine AdvReac Unknown Verified 02/12/21 20:47 diphenhydramine AdvReac "could not Verified 02/12/21 21:06 [From Benadryl] wake up for hours" erythromycin base AdvReac Unknown Verified 02/12/21 20:47 formoterol [From Symbicort] AdvReac "Mouth Verified 02/12/21 20:47 Blisters" ibuprofen [From Motrin] AdvReac "Stomach Verified 02/12/21 20:47 Bleeding" levofloxacin [From Levaquin] AdvReac "Tendonitis Verified 02/12/21 20:47 " prednisone AdvReac "Several Verified 02/12/21 20:47 Different Reactions" Sulfa (Sulfonamide AdvReac Unknown Verified 02/12/21 21:06 Antibiotics) sulfamethoxazole AdvReac Unknown Verified 02/12/21 20:47 [From Bactrim] Tetracyclines AdvReac Unknown Verified 02/12/21 20:47 tiotropium AdvReac "Mouth Verified 02/12/21 20:47 [From Spiriva with Blisters" HandiHaler] MUSCLE RELAXERS AdvReac Unknown Uncoded 06/14/20 11:22 prolensa eye drop AdvReac "Eye Pain" Uncoded 02/12/21 20:47 steroids AdvReac "Several Uncoded 02/12/21 20:47 Different Reactions" Physical Exam Vitals: Vital Signs Temp Pulse Pulse Resp BP BP Pulse Ox 02/13/21 15:09 152/85 02/13/21 12:58 97.5 F L 65 19 180/90 100 02/13/21 07:39 98.4 F 62 24 135/60 98 02/13/21 04:30 98.2 F 52 L 20 145/66 98 02/13/21 00:02 148/79 02/12/21 21:55 98.2 F 55 L 20 178/81 99 02/12/21 21:33 98.4 F 63 18 169/84 97 02/12/21 18:47 189/89 98 Intake and Output 02/13/21 02/13/21 02/13/21 06:59 14:59 22:59 Intake Total 800 Balance 800 Intake: Intake, IV Titration 600 Amount Sodium Chloride 0.9% 1, 600 000 ml @ 75 mls/hr IV . [id number] [facility] Rx#:[id number] Oral 200 Other: Voiding Method Toilet Diaper # Voids 1 2 - Constitutional General appearance: cooperative - EENT Eyes: EOMI, PERRLA ENT: hard of hearing Ears: bilateral: normal - Neck Neck: normal ROM Carotids: bilateral: upstroke normal Thyroid: bilateral: normal size - Respiratory Respiratory: bilateral: CTA (Anterior and posterior lung leung) - Cardiovascular Heart rate: 74 Rhythm: regular Heart sounds: normal: S1, S2 radial pulse Peripheral Pulses: bilateral: Normal dorsalis pedis Peripheral Pulses: bilateral: Normal - Gastrointestinal General gastrointestinal: normal bowel sounds - Integumentary Integumentary: decreased turgor - Neurologic Neurologic: CNII-XII intact - Musculoskeletal Musculoskeletal: generalized weakness - Psychiatric Psychiatric: A&O x's 3, appropriate affect, intact judgment & insight Results CBC & Chem 7: 02/12/21 20:33 02/12/21 20:33 Labs: Abnormal Lab Results - Last 24 Hours (Table) 02/12/21 02/12/21 Range/Units 19:30 20:33 Chloride 112 H (98-107) mmol/L Carbon Dioxide 16 L (22-30) mmol/L Urine Appearance Cloudy H (Clear) Ur Leukocyte Esterase Large H (Negative) Urine WBC >182 H (0-5) /hpf Urine WBC Clumps Many H (None) /hpf Amorphous Sediment Rare H (None) /hpf Urine Bacteria Occasional H (None) /hpf Microbiology - Last 24 Hours (Table) 02/12/21 19:30 Urine Culture - Preliminary Urine,Voided Chest x-ray: report reviewed Thrombosis Risk Factor Assmnt - Choose All That Apply Any of the Below Risk Factors Present?: Yes Each Factor Represents 1 point: Obesity (BMI >25) Other Risk Factors: Yes Each Risk Factor Represents 2 Points: Malignancy Each Risk Factor Represents 3 Points: Age 75 years or older Other congenital or acquired thrombophilia - If yes, enter type in comment: No Thrombosis Risk Factor Assessment Total Risk Factor Score: 6 Thrombosis Risk Factor Assessment Level: High Risk Assessment and Plan Assessment: Acute urinary tract infection present upon admission Generalized weakness Asthma History of myocardial infarction Osteoarthritis History of pneumonia Hypothyroidism Recurrent urinary tract infections with resistance, sensitivity to medications with several ALLERGIES noted Glaucoma History of uterine cancer Coronary artery disease with heart cardiac catheterization with stent placement Right knee replacement Cataracts Full code Plan: Acute urinary tract infection present upon admission, continue Invanz 1 g IV piggyback daily due to multi resistant organisms and several ALLERGIES; consultation with infectious disease for outpatient therapy Generalized weakness, continue IV hydration Hypertension episode, IV hydralazine for blood pressures greater than 160/90 Continue to monitor vital signs and diagnostic testing Continue home medications Continue medical management Further recommendations to come based on patient's clinical condition Hopeful discharge in 24-48 hours Time with Patient: Greater than 30
[2021-02-13] MEDS ORDERED: ZINC SULFATE 220 MG CAP PO SCH (21:00)
[2021-02-13] MEDS ORDERED: NON FORMULARY DRUG (Ubidecarenone [Co Q-10] 100 MG Capsule) PO SCH (21:00)
[2021-02-13] MEDS ORDERED: [UNRECOGNIZED DRUG - OTHER] PO SCH (21:00)
[2021-02-13] MEDS ORDERED: LACTOBACILLUS ACIDOPH & BULGAR 1 EACH PACKET PO SCH (21:00)
[2021-02-13] MEDS ORDERED: [UNRECOGNIZED DRUG - OTHER] PO SCH (21:00)
[2021-02-13] MEDS ORDERED: NON FORMULARY DRUG (Selenium [Selenium] 100 MCG Tablet) PO SCH (21:00)
[2021-02-13] MEDS: HEPARIN SODIUM,PORCINE/PF 5,000 UNIT/0.5 ML SYRINGE SQ SCH ×2 (21:36→21:40)
--- NOTE | 2021-02-13 21:49 | P.CONS ---
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 and has been treated with a multiple courses of IV antibiotic therapy, patient did mention her last UTI was back in June and she was using a good probiotic and apparently did not have any further UTI however she recently switched her probiotic and with the last 1 month she sta rted having a burning of urine with some frequency suprapubic pain patient has been treated with 4-5 courses of fosfomycin by her primary care physician however the patient did have persistent symptoms for the patient was sent to the ER the patient did have persistent symptoms and was noticed to have low blood pressure complaining of increasing weakness and not feeling well patient on presentation to the hospital was afebrile and no fever was recorded subsequently patient did have a normal white count kidney function was normal urine was positive with large leukocyte esterase more than 1 L WBC patient was started on Invanz admitted to the hospital infectious was consulted for further management of antibiotic therapy patient did have a chest x-ray reported negative for acute cardiopulmonary process Review of system: CONSTITUTIONAL: Positive for weakness however denies high-grade fever. EYES: No complaint. ENT: No complaint. RESPIRATORY: No complaint. CARDIOVASCULAR: No complaint. GENITOURINARY: As per history of present illness. GASTROINTESTINAL: No complaint. MUSCULOSKELETAL: No complaint. INTEGUMENTARY: No complaint. PSYCHOLOGIC: No complaint. ENDOCRINE: No complaint. NEUROLOGIC: No complaint. Past medical history : Reviewed, documented below Past surgical history : Reviewed, documented below Social history: Reviewed, documented below Medications: Reviewed, as documented below GENERAL DESCRIPTION: Elderly female lying in bed, no distress. No tachypnea or accessory muscle of respiration use. HEENT: Shows Pallor , no scleral icterus. Oral mucous membrane is dry. NECK: Trachea central, no thyromegaly. LUNGS: Unlabored breathing. Clear to auscultation anteriorly. No wheeze or crackle. HEART: S1, S2, regular rate and rhythm. ABDOMEN: Soft, no tenderness , guarding or rigidity EXTREMITIES: No edema of feet. SKIN: No rash, no masses palpable. NEUROLOGICAL: The patient is awake, alert, oriented x3, mood and affect normal. LABS AND RADIOLOGY: Reviewed results see below Assessment : 1-Patient presented to hospital with generalized weakness no energy patient did have urinary frequency burning suprapubic discomfort in this patient has failed to respond to outpatient fosfomycin therapy concerning for asymptomatic urine tract infection 2-patient with multiple antibiotic allergies that would limit the number of antibiotics safe to use Plan: 1-Invanz 1 g daily to continue while waiting for the culture finalized 2-may need a midline a short course of IV antibiotics on discharge We will follow on clinical condition and cultures to further adjust medication if needed Thank you for this consultation we will follow the patient along with you Past Medical History Past Medical History: Asthma, Cancer, Myocardial Infarction ([place]), Osteoarthritis (OA), Pneumonia, Thyroid Disorder Additional Past Medical History / Comment(s): uterine cancer 1973, rt eye glaucoma, poor circulation, arthritis-herniated discs, mult UTI's since 2016, change in bowel movements, episodes of vomiiting after having a bowel movement, abdominal pain, " i feel my food in my stomach", "low heart rate" Last Myocardial Infarction Date:: 2015 History of Any Multi-Drug Resistant Organisms: None Reported Past Surgical History: No Surgical Hx Reported, Heart Catheterization, Heart Catheterization With Stent, Hysterectomy, Joint Replacement, Orthopedic Surgery, Tonsillectomy Additional Past Surgical History / Comment(s): rt knee replacement, alexys cataracts,skin tags removed, colonoscopy/egd, one cardiac stent, rt foot sx, lt knee arthroscopy. deviated septum, Past Anesthesia/Blood Transfusion Reactions: Previous Problems w/ Anesthesia, Motion Sickness Additional Past Anesthesia/Blood Transfusion Reaction / Comm: dif waking up Date of Last Stent Placement:: 2015 Past Psychological History: No Psychological Hx Reported Smoking Status: Never smoker Past Alcohol Use History: None Reported Past Drug Use History: None Reported - Past Family History Mother Family Medical History: No Reported History Additional Family Medical History / Comment(s): cabg Medications and Allergies Home Medications Medication Instructions Recorded Confirmed Type Albuterol Sulfate [Proventil Hfa] 2 puff INHALATION RT-Q4H PRN 04/17/16 02/12/21 History acetaZOLAMIDE [Diamox] 500 mg PO BID 10/23/17 02/12/21 History L.acidoph,Paracasei, B.lactis 1 each PO HS 06/13/20 02/12/21 History [Probiotic] "Peak" Thyroid Support 2 tab PO DAILY 02/12/21 02/12/21 History Aloe Vera Extract 25mg 2 tab PO BID 02/12/21 02/12/21 History Ascorbic Acid [Vitamin C] 1,000 mg PO DAILY 02/12/21 02/12/21 History Bilberry Fruit Extract 1 tab PO DAILY 02/12/21 02/12/21 History Cholecalciferol [Vitamin D3 (25 100 mcg PO BID 02/12/21 02/12/21 History Mcg = 1000 Iu)] Garlic Extract 1,000mg 1 tab PO DAILY 02/12/21 02/12/21 History Ginkgo Biloba [place] Extract [Ginkgo 120 mg PO BID 02/12/21 02/12/21 History Biloba] Lutein Gold 20mg 1 tab PO HS 02/12/21 02/12/21 History Multivit-Min/Iron/Folic/Lutein 1 tab PO DAILY 02/12/21 02/12/21 History [Centrum Silver Women Tablet] Sea Kelp W/ 200mcg Of Iodine 1 tab PO HS 02/12/21 02/12/21 History Selenium 100 mcg PO HS 02/12/21 02/12/21 History Ubidecarenone [Co Q-10] 100 mg PO HS 02/12/21 02/12/21 History Vitamin B Complex 1 tab PO DAILY 02/12/21 02/12/21 History Zinc 25mg 1 tab PO HS 02/12/21 02/12/21 History Allergies Allergy/AdvReac Type Severity Reaction Status Date / Time bee venom protein (honey bee) Allergy Anaphylaxis Verified 02/12/21 20:47 cefuroxime Allergy "Rash, Verified 02/12/21 20:47 Blisters, Itching, Nausea" cortisone Allergy "Several Verified 02/12/21 20:47 Different Reactions" meperidine [From Demerol] Allergy "could not Verified 02/12/21 20:47 wake up for hours" nalbuphine [From Nubain] Allergy "could not Verified 02/12/21 20:47 wake up for hours" naproxen [From Naprosyn] Allergy Rash/Hives Verified 02/12/21 20:47 nitrofurantoin Allergy "Diarrhea, Verified 02/12/21 20:47 [From Macrobid] Severe Digestive Tract Pain, Headache, Dizziness" Penicillins Allergy Rash/Hives Verified 02/12/21 20:47 perfume Allergy Unknown Verified 02/12/21 21:06 trimethoprim [From Bactrim] Allergy Unknown Verified 02/12/21 20:47 atorvastatin [From Lipitor] AdvReac "Tendonitis Verified 02/12/21 20:47 " budesonide [From Symbicort] AdvReac "Mouth Verified 02/12/21 20:47 Blisters" cefadroxil [From Duricef] AdvReac Unknown Verified 02/12/21 20:47 cephalexin [From Keflex] AdvReac Unknown Verified 02/12/21 20:47 Childhood ciprofloxacin [From Cipro] AdvReac "Tendonitis Verified 02/12/21 20:47 " codeine AdvReac Unknown Verified 02/12/21 20:47 diphenhydramine AdvReac "could not Verified 02/12/21 21:06 [From Benadryl] wake up for hours" erythromycin base AdvReac Unknown Verified 02/12/21 20:47 formoterol [From Symbicort] AdvReac "Mouth Verified 02/12/21 20:47 Blisters" ibuprofen [From Motrin] AdvReac "Stomach Verified 02/12/21 20:47 Bleeding" levofloxacin [From Levaquin] AdvReac "Tendonitis Verified 02/12/21 20:47 " prednisone AdvReac "Several Verified 02/12/21 20:47 Different Reactions" Sulfa (Sulfonamide AdvReac Unknown Verified 02/12/21 21:06 Antibiotics) sulfamethoxazole AdvReac Unknown Verified 02/12/21 20:47 [From Bactrim] Tetracyclines AdvReac Unknown Verified 02/12/21 20:47 tiotropium AdvReac "Mouth Verified 02/12/21 20:47 [From Spiriva with Blisters" HandiHaler] MUSCLE RELAXERS AdvReac Unknown Uncoded 06/14/20 11:22 prolensa eye drop AdvReac "Eye Pain" Uncoded 02/12/21 20:47 steroids AdvReac "Several Uncoded 02/12/21 20:47 Different Reactions" Physical Exam Vitals: Vital Signs Temp Pulse Pulse Resp BP BP Pulse Ox 02/13/21 07:39 98.4 F 62 24 135/60 98 02/13/21 04:30 98.2 F 52 L 20 145/66 98 02/13/21 00:02 148/79 02/12/21 21:55 98.2 F 55 L 20 178/81 99 02/12/21 21:33 98.4 F 63 18 169/84 97 02/12/21 18:47 189/89 98 02/12/21 17:02 98.1 F 59 L 18 193/87 98 Intake and Output 02/12/21 02/13/21 02/13/21 22:59 06:59 14:59 Intake Total 800 Balance 800 Intake: Intake, IV Titration 600 Amount Sodium Chloride 0.9% 1, 600 000 ml @ 75 mls/hr IV . [id number] [facility] Rx#:[id number] Oral 200 Other: # Voids 1 Weight 79.379 kg Results CBC & Chem 7: 02/12/21 20:33 02/12/21 20:33 Labs: Abnormal Lab Results - Last 24 Hours (Table) 02/12/21 02/12/21 Range/Units 19:30 20:33 Chloride 112 H (98-107) mmol/L Carbon Dioxide 16 L (22-30) mmol/L Urine Appearance Cloudy H (Clear) Ur Leukocyte Esterase Large H (Negative) Urine WBC >182 H (0-5) /hpf Urine WBC Clumps Many H (None) /hpf Amorphous Sediment Rare H (None) /hpf Urine Bacteria Occasional H (None) /hpf Microbiology - Last 24 Hours (Table) 02/12/21 19:30 Urine Culture - Preliminary Urine,Voided
[2021-02-14 06:07] LABS: Basophils % (A) 0 %; Eosinophils # (A) 0.2 k/uL (0-0.7); Eosinophils % (A) 2 %; HCT 38.4 % (34.0-46.0); HGB 12.3 gm/dL (11.4-16.0); Lymphocytes # (A) 2.8 k/uL (1.0-4.8); Lymphocytes % (A) 39 %; MCH 30.4 pg (25.0-35.0); MCHC 32.2 g/dL (31.0-37.0); MCV 94.3 fL (80.0-100.0); Mean Platelet Volume 9.4; Monocytes # (A) 0.5 k/uL (0-1.0); Monocytes % (A) 7 %; Neutrophils # (A) 3.6 k/uL (1.3-7.7); Neutrophils % (A) 50 %; Platelet Count 159 k/uL (150-450); RBC 4.07 m/uL (3.80-5.40); RDW 13.8 % (11.5-15.5); WBC 7.2 k/uL (3.8-10.6)
--- NOTE | 2021-02-14 07:40 | P.PN ---
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 Patient was sent from office due to recurrent urinary tract infections with resistant to oral antibiotics and sensitivity of antibiotics patient has multiple ALLERGIES. Patient had associated symptoms of dizziness, lightheadedness and generalized fatigue. Patient noted has CVA tenderness in the office. Patient had extensive diagnostic workup in emergency department revealing a urinary tract infection on admission. Patient initiated on Invanz 1 g daily; consultation with infectious disease regarding resistant urinary tract infections and several ALLERGIES. 02/13/2021 She is seen and examined at bedside. Patient resting comfortably. Patient denies fever, chills shortness of breath, chest pain, palpitations, abdominal pain, nausea or vomiting at this time. Vital signs and diagnostic testing results reviewed. Treatment plan discussed with patient and nurse. Awaiting recommendations from infectious disease regarding antibiotic therapy for outpatient. Patient no acute signs of distress. 02/14/2021 Patient seen and examined at bedside. Patient resting comfortably. Patient denies any complaints at this time. Vital signs and diagnostic testing reviewed; awaiting on chemistry panel. Patient tolerating Invanz 1 g daily. Treatment plan discussed with patient and nursing staff. Awaiting on culture and sensitivity for possible use of midline for Invanz 1 g IV daily for remaining doses of antibiotic therapy for recurrent urinary tract infections. Patient denies any complaints at this time. Patient in no acute signs of dis tress. Objective - Vital Signs Vital signs: Vital Signs Temp 98.1 F 02/14/21 04:50 Pulse 54 L 02/14/21 04:50 Resp 20 02/14/21 04:50 BP 141/62 02/14/21 04:50 Pulse Ox 96 02/14/21 04:50 Intake & Output 02/13/21 02/14/21 02/14/21 18:59 06:59 18:59 Intake Total 200 Balance 200 Intake: Oral 200 Other: Voiding Method Toilet Toilet Diaper Diaper # Voids 2 1 - Constitutional General appearance: Present: cooperative, no acute distress, obese - EENT Eyes: Present: EOMI, PERRLA ENT: Present: hard of hearing Ears: bilateral: normal - Neck Neck: Present: normal ROM Carotids: bilateral: upstroke normal Thyroid: bilateral: normal size - Respiratory Respiratory: bilateral: CTA (Anterior and posterior lung leung) - Cardiovascular Heart rate: 87 Rhythm: regular Heart sounds: normal: S1, S2 - Peripheral pulses radial pulse Peripheral Pulses: bilateral: Normal dorsalis pedis Peripheral Pulses: bilateral: Normal - Gastrointestinal General gastrointestinal: Present: normal bowel sounds - Integumentary Integumentary: Present: decreased turgor - Neurologic Neurologic: Present: CNII-XII intact - Musculoskeletal Musculoskeletal: Present: generalized weakness - Psychiatric Psychiatric: Present: A&O x's 3, appropriate affect, intact judgment & insight - Allied health notes Allied health notes reviewed: nursing - Labs CBC & Chem 7: 02/14/21 05:30 02/12/21 20:33 Labs: Microbiology - Last 24 Hours (Table) 02/12/21 20:33 Blood Culture - Preliminary Blood No Growth after 24 hours 02/12/21 20:33 Blood Culture - Preliminary Blood No Growth after 24 hours 02/12/21 19:30 Urine Culture - Preliminary Urine,Voided Assessment and Plan Assessment: Acute urinary tract infection present upon admission Generalized weakness Asthma History of myocardial infarction Osteoarthritis History of pneumonia Hypothyroidism Recurrent urinary tract infections with resistance, sensitivity to medications with several ALLERGIES noted Glaucoma History of uterine cancer Coronary artery disease with heart cardiac catheterization with stent placement Right knee replacement Cataracts Full code Plan: Acute urinary tract infection present upon admission, continue Invanz 1 g IV piggyback daily due to multi resistant organisms and several ALLERGIES; consu ltation with infectious disease for outpatient therapy Generalized weakness, continue IV hydration Hypertension episode, IV hydralazine for blood pressures greater than 160/90 Continue to monitor vital signs and diagnostic testing Continue home medications Continue medical management Further recommendations to come based on patient's clinical condition Hopeful discharge in 24-48 hours; awaiting on culture and sensitivity for possible midline placement for Invanz 1 g IV [place] for remaining doses. Time with Patient: Greater than 30
[2021-02-14] MEDS: HEPARIN SODIUM,PORCINE/PF 5,000 UNIT/0.5 ML SYRINGE SQ SCH ×2 (07:54→09:10)
[2021-02-14] MEDS: ERTAPENEM 1 GM in SODIUM CHLORIDE 0.9% 50 ML IVPB SCH ×2 (07:55→07:56)
[2021-02-14] MEDS ORDERED: ERTAPENEM 1 GM in SODIUM CHLORIDE 0.9% 50 ML IVPB SCH (09:00)
[2021-02-14] MEDS ORDERED: PANTOPRAZOLE 40 MG TABLET PO SCH (09:00)
[2021-02-14] MEDS: ASCORBIC ACID 500 MG TAB PO SCH (09:08)
[2021-02-14] MEDS: acetaZOLAMIDE 250 MG TAB PO SCH (09:08)
[2021-02-14] MEDS: CHOLECALCIFEROL 25 MCG (1000 IU) TABLET PO SCH (09:09)
[2021-02-14] MEDS: VIT A,C & E-LUTEIN-MINERALS 1 EACH TAB PO SCH (09:09)
[2021-02-14] MEDS: FOLIC ACID-VIT B COMPLEX-VIT C 1 CAP PO SCH (09:09)
[2021-02-14 10:21] LABS: African American GFR (CKD) 94.2 (60.0-200.0); Anion Gap 5.7 mmol/L (4.00-12.00); Carbon Dioxide 18.3 mmol/L (21.6-31.8); Non-African American GFR(CKD) 81.3 (60.0-200.0); Potassium 3.5 mmol/L (3.5-5.5)
[2021-02-14] MEDS: SODIUM CHLORIDE 0.9% 1,000 ML IV SCH (10:49)
[2021-02-14 12:20] VITALS: BP 146/72; PULSE 56; RESP 16; TEMP 97.8
--- NOTE | 2021-02-14 13:47 | PN ---
PROGRESS NOTE DATE OF SERVICE: 02/14/2021 REASON FOR FOLLOWUP: Recurrent urinary tract infection. INTERVAL HISTORY: The patient is afebrile. The patient is feeling slightly better, breathing comfortably. No chest pain, shortness of breath or cough. No abdominal pain or diarrhea. PHYSICAL EXAMINATION: Blood pressure 146/70 with a pulse of 53, temperature 97.8. She is 98% on room air. GENERAL DESCRIPTION: General description is an elderly female lying in bed in no distress. RESPIRATORY SYSTEM: Unlabored breathing. Clear to auscultation anteriorly. HEART: S1, S2. Regular rate and rhythm. ABDOMEN: Soft. No tenderness. LABS: Hemoglobin is 12.3, white count 7.2, BUN of 14, creatinine 0.7. DIAGNOSTIC IMPRESSION AND PLAN: Patient with a recurrent urinary tract infection with MULTIPLE ANTIBIOTIC ALLERGIES in this patient clinically responding to the Invanz; to continue for another 7-10 days in the outpatient setting to finish her course of therapy and close outpatient followup. Questions and concerns were answered. MMODL / IJN: [id number] /
--- NOTE | 2021-02-15 06:31 | P.DS ---
Providers Date of admission: 02/12/21 19:56 Expected date of discharge: 02/14/21 Attending physician: Julien Redmond Consults: 02/12/21 19:48 Consult Physician Urgent Consulting Provider: Patti Prater Consult Reason/Comments: Urinary tract infection, failure of outpatient treatment Do you want consulting provider notified?: Yes Primary care physician: Julien Redmond Hospital Course: 80-year-old female with past medical history of recurrent urinary tract infections, asthma, history of myocardial infarction, osteoarthritis, recurrent pneumonias, hypothyroidism, glaucoma, multi resistant urinary tract infections with several ALLERGIES, history of heart catheterization with stent placement, and several other comorbidities. Patient was sent from office due to recurrent urinary tract infections with resistant to oral antibiotics and sensitivity of antibiotics patient has multiple ALLERGIES. Patient had associated symptoms of dizziness, lightheadedness and generalized fatigue. Patient noted has CVA tenderness in the office. Patient had extensive diagnostic workup in emergency department revealing a urinary tract infection on admission. Acute urinary tract infection present on admission, 1 g IV piggyback InVance was given for 3 doses patient responded well to treatment symptoms subsided during hospital stay. Generalized weakness improved with strength and conditioning of IV hydration. Hypertensive episodes were controlled with antihypertensive medications. Patient tolerated hospital stay well; patient have close follow-up with primary care 1-2 days for transition of care; patient of have close follow-up with infectious disease as needed for recurrent acute urinary tract infections. Education was provided through [facility] nurse regarding care of midline. Patient discharged with guarded prognosis Assessment: Acute urinary tract infection present upon admission Generalized weakness Asthma History of myocardial infarction Osteoarthritis History of pneumonia Hypothyroidism Recurrent urinary tract infections with resistance, sensitivity to medications with several ALLERGIES noted Glaucoma History of uterine cancer Coronary artery disease with heart cardiac catheterization with stent placement Right knee replacement Cataracts Full code Final diagnoses Urinary tract infection present upon admission, we'll continue IV piggyback Invanz 1 g daily through midline, patient responded well to IV piggyback, protamine antibiotics for urinary tract infection Generalized weakness, responded well to IV hydration and general strength and conditioning Hypertension, controlled with antihypertensive medications Health Concerns: The complexity of IV piggyback advanced through midline for 7 day duration Risk of infection with midline insertion with IV piggyback antibiotics Comorbidities Pertinent Studies: Chest x-ray, no acute cardiopulmonary processes noted Procedures: Left upper cephalic 20-gauge 10 cm midline insertion performed Patient Condition at Discharge: Fair Plan - Discharge Summary Discharge Rx Participant: No New Discharge Prescriptions: New Ertapenem [INVanz] 1 gm IVPB DAILY #7 each Continue Albuterol Sulfate [Proventil Hfa] 2 puff INHALATION RT-Q4H PRN PRN Reason: Shortness Of Breath acetaZOLAMIDE [Diamox] 500 mg PO BID L.acidoph,Paracasei, B.lactis [Probiotic] 1 each PO HS Selenium 100 mcg PO HS "Peak" Thyroid Support 2 tab PO DAILY Zinc 25mg 1 tab PO HS Sea Kelp W/ 200mcg Of Iodine 1 tab PO HS Lutein Gold 20mg 1 tab PO HS Multivit-Min/Iron/Folic/Lutein [Centrum Silver Women Tablet] 1 tab PO DAILY Vitamin B Complex 1 tab PO DAILY Cholecalciferol [Vitamin D3 (25 Mcg = 1000 Iu)] 100 mcg PO BID Ginkgo Biloba [place] Extract [Ginkgo Biloba] 120 mg PO BID Ubidecarenone [Co Q-10] 100 mg PO HS Garlic Extract 1,000mg 1 tab PO DAILY Aloe Vera Extract 25mg 2 tab PO BID Ascorbic Acid [Vitamin C] 1,000 mg PO DAILY Bilberry Fruit Extract 1 tab PO DAILY Discharge Medication List Albuterol Sulfate [Proventil Hfa] 2 puff INHALATION RT-Q4H PRN 04/17/16 [History] acetaZOLAMIDE [Diamox] 500 mg PO BID 10/23/17 [History] L.acidoph,Paracasei, B.lactis [Probiotic] 1 each PO HS 06/13/20 [History] "Peak" Thyroid Support 2 tab PO DAILY 02/12/21 [History] Aloe Vera Extract 25mg 2 tab PO BID 02/12/21 [History] Ascorbic Acid [Vitamin C] 1,000 mg PO DAILY 02/12/21 [History] Bilberry Fruit Extract 1 tab PO DAILY 02/12/21 [History] Cholecalciferol [Vitamin D3 (25 Mcg = 1000 Iu)] 100 mcg PO BID 02/12/21 [History] Garlic Extract 1,000mg 1 tab PO DAILY 02/12/21 [History] Ginkgo Biloba [place] Extract [Ginkgo Biloba] 120 mg PO BID 02/12/21 [History] Lutein Gold 20mg 1 tab PO HS 02/12/21 [History] Multivit-Min/Iron/Folic/Lutein [Centrum Silver Women Tablet] 1 tab PO DAILY 02/12/21 [History] Sea Kelp W/ 200mcg Of Iodine 1 tab PO HS 02/12/21 [History] Selenium 100 mcg PO HS 02/12/21 [History] Ubidecarenone [Co Q-10] 100 mg PO HS 02/12/21 [History] Vitamin B Complex 1 tab PO DAILY 02/12/21 [History] Zinc 25mg 1 tab PO HS 02/12/21 [History] Ertapenem [INVanz] 1 gm IVPB DAILY #7 each 02/14/21 [Rx] Follow up Appointment(s)/Referral(s): Julien Redmond MD [Primary Care Provider] - 02/21/21 1:20 pm [facility]Infusion [NON-STAFF] - 1 Week Patient Instructions/Handouts: Ertapenem (By injection), Urinary Tract Infection in Women (DC), Weakness (DC) Discharge Disposition: HOME WITH HOME HEALTH SERVICES
== END 2021-02-14 16:00 | disposition home health service (06) ==
LOC: EC 16:14 → 5NMEDONC 19:56
PROVIDERS: ADMIT Family Medicine; ATTEND Family Medicine
DX: N39.0 Urinary tract infection, site not specified (principal); E03.9 Hypothyroidism, unspecified; H26.9 Unspecified cataract; H40.9 Unspecified glaucoma; I10 Essential (primary) hypertension; I25.10 Atherosclerotic heart disease of native coronary artery without angina pectoris; I25.2 Old myocardial infarction; J45.909 Unspecified asthma, uncomplicated; M19.90 Unspecified osteoarthritis, unspecified site; Z79.899 Other long term (current) drug therapy; Z85.42 Personal history of malignant neoplasm of other parts of uterus; Z87.01 Personal history of pneumonia (recurrent); Z87.440 Personal history of urinary (tract) infections; Z88.1 Allergy status to other antibiotic agents; Z95.5 Presence of coronary angioplasty implant and graft; Z96.651 Presence of right artificial knee joint
CPT/HCPCS: 96361 ×2; 96366 ×2; 96375; 96365; 99284; 93005; 97161; 36410; 76937; 84439; 84481; 80053; 80048; 85652; 83735; 84443; 85025 ×2; 86140; 81001; 87040; 87086; 87077; 87186; 84145; 71045; G0378 ×3; C1751; J2405; J1335 ×3

== ENCOUNTER → 2021-06-14 | Outpatient (CLI) | payer MEDICARE, BC ==
--- NOTE | 2021-06-15 08:38 | XR ---
EXAMINATION TYPE: XR shoulder complete RT DATE OF EXAM: 06/14/2021 CLINICAL HISTORY: pain TECHNIQUE: Three views of the right shoulder are obtained. COMPARISON: None FINDINGS: There is no acute fracture/dislocation evident. The acromioclavicular and glenohumeral wilfred int spaces appear moderately narrowed. The visualized ribs are intact and unremarkable. IMPRESSION: 1. There is no acute fracture or dislocation. ICD 10 NO FRACTURE, INITIAL EVALUATION
--- NOTE | 2021-06-15 08:38 | XR ---
EXAMINATION TYPE: XR Hip Complete RT DATE OF EXAM: 06/14/2021 CLINICAL HISTORY: pain TECHNIQUE: AP and frogleg views of the right hip are obtained. COMPARISON: None. FINDINGS: There is no acute fracture/dislocation evident. The joint space appears within normal li mits. The overlying soft tissue appears unremarkable. IMPRESSION: 1. There is no acute fracture or dislocation. ICD 10 NO FRACTURE, INITIAL EVALUATION
== END | disposition home or self-care (01) ==
LOC: RADXRMAIN 16:16
PROVIDERS: ATTEND Nurse Practitioner Family
DX: M25.551 Pain in right hip (principal); M25.519 Pain in unspecified shoulder
CPT/HCPCS: 73502

== ENCOUNTER → 2021-12-12 | Outpatient (CLI) | payer MEDICARE, BC ==
--- NOTE | 2021-12-12 11:49 | US ---
EXAMINATION TYPE: US carotid duplex BILAT DATE OF EXAM: 12/12/2021 COMPARISON: NONE CLINICAL HISTORY: I65.29 Occlusion and stenosis of carotid artery. EXAM MEASUREMENTS: RIGHT: Peak Systolic Velocity (PSV) cm/sec ----- Right CCA: 96.0 ----- Right ICA: 79.7 ----- Right ECA: 85.7 ICA/CCA ratio: 0.8 RIGHT: End Diastole cm/sec ----- Right CCA: 19.7 ----- Right ICA: 23.2 ----- Right ECA: 0.0 LEFT: Peak Systolic Velocity (PSV) cm/sec ----- Left CCA: 52.5 ----- Left ICA: 475.0 ----- Left ECA: 96.8 ICA/CCA ratio: 9.13 LEFT: End Diastole cm/sec ----- Left CCA: 14.2 ----- Left ICA: 210.0 ----- Left ECA: 6.9 VERTEBRALS (direction of flow): Right Vertebral: Antegrade Left Vertebral: Antegrade Rhythm: Normal Mild atherosclerotic changes seen on right. Left ICA shows severe atherosclerotic changes greater howard n 70% stenosis. IMPRESSION: 1. Significant severe stenosis left internal carotid artery of greater than 70%. 2. Atheromatous plaquing and intimal thickening present bilaterally. Criteria for Assigning % of Stenosis / Diameter reduction (Estimation based on the indirect measurements of the internal carotid artery velocities (ICA PSV). 1. Normal (no stenosis)=ICA PSV < 125 cm/s: ratio < 2.0: ICA EDV<40 cm/s. 2. Less than 50% stenosis=ICA PSV < 125 cm/s: ratio < 2.0: ICA EDV<40 cm/s. 3. 50 to 69% stenosis=ICA PSV of 125 to 230 cm/s: ration 2.0 ? 4.0: ICA EDV 40-100 cm/s. 4. Greater than 70% stenosis to near occlusion= ICA PSV > 230 cm/s: ratio > 4.0: ICA EDV > 100 cm/s. 5. Near occlusion= ICA PSV velocities may be low or undetectable: variable ratio and ICA EDV. 6. Total occlusion=unable to detect flow.
== END | disposition home or self-care (01) ==
LOC: RADUSWWP 10:49
PROVIDERS: ATTEND Family Medicine
DX: I65.23 Occlusion and stenosis of bilateral carotid arteries (principal)
CPT/HCPCS: 93880

== ENCOUNTER → 2024-12-20 | Outpatient (CLI) | payer MEDICARE, BC ==
--- NOTE | 2024-12-20 13:46 | MM ---
Reason for Exam: Screening (asymptomatic). Last mammogram was performed 6 year(s) and 1 month(s) ago. Patient History: Menarche at age 9. First Full-Term at age 15. Hysterectomy at age 32. Postmenopausal. Other cancer, age 33. Risk Values: Wilma 5 year model risk: 1.0%. NCI Lifetime model risk: 1.0%. Prior Study Comparison: 11/09/2015 Bilateral Screening Mammogram, [facility]. 06/06/2017 Bilateral Screening Mammogram, [facility]. 11/26/2018 Bilateral Screening Mammogram, [facility]. Tissue Density: There are scattered areas of fibroglandular density. Findings: Analyzed By CAD. There is benign-appearing vascular calcifications in the left breast. There is no suspicious group of microcalcifications or new suspicious mass in either breast. Overall Assessment: Negative, BI-RAD 1 Management: Screening Mammogram of both breasts in 1 year. . Patient should continue monthly self-breast exams. A clinical breast exam by your physician is recommended on an annual basis. This exam should not preclude additional follow-up of suspicious palpable abnormalities. Note on Wilma scores and lifetime risk: 1. A Wilma score greater than 3% is considered moderate risk. If this is the case, consider specialist referral to assess eligibility for a risk reducing agent. 2. If overall lifetime risk for the development of breast cancer is 20% or higher, the patient may qualify for future screening with alternating mammogram and breast MRI. [facility], , 12/20/2024 1:43 PM. Electronically signed and approved by: Saurabh Gaffney M.D.
== END | disposition home or self-care (01) ==
LOC: RADMAMWWP 11:54
PROVIDERS: ATTEND Family Medicine
DX: Z12.31 Encounter for screening mammogram for malignant neoplasm of breast (principal); R92.323 Mammographic fibroglandular density, bilateral breasts; Z78.0 Asymptomatic menopausal state
CPT/HCPCS: 77063; 77067